=== PATIENT | female | born 1945 | race Caucasian/White ===

== ENCOUNTER 2023-02-26 12:11 | Emergency (ER) | payer OTHER ==
--- NOTE | 2023-02-26 13:20 | RAD REPORT ---
EXAM DESCRIPTION: CT - Stone Protocol - 02/26/2023 1:05 pm CLINICAL HISTORY: Flank pain. FLANK PAIN COMPARISON: Abdomen Pelvis W Contrast dated 05/01/2021 TECHNIQUE: Axial images were obtained without oral or IV contrast. Lack of contrast limits solid org an and vascular assessment. The [id number] spans the entirety of the system partially obscuring uppermost abdomen and lung bases. Coronal reformatted images were obtained and reviewed. All CT scans are performed using dose optimization technique as appropriate and may include automated exposure control or mA/KV adjustment according to patient size. FINDINGS: The lower lung blevins are clear. Imaged portions of the liver and spleen show no suspicious findings on non-contrast imaging. The panc reas and adrenal glands are normal. No pathologic lymphadenopathy in the abdomen or pelvis. No urinary tract stones or obstructive uropathy. No bowel obstruction, free air, free fluid or abscess. Nonvisualized appendix. No significant bony abnormality. IMPRESSION: No urinary tract stones or obstructive uropathy.
--- NOTE | 2023-02-26 13:22 | RAD REPORT ---
EXAM DESCRIPTION: RAD - Hip Right 2 View - 02/26/2023 1:14 pm CLINICAL HISTORY: PAIN COMPARISON: <Comparisons> FINDINGS: Moderate right hip osteoarthritis is present. No fracture, dislocation or AVN.
[2023-02-26] MEDS ORDERED: dexAMETHasone 10 MG/ML VIAL ONE (14:49)
[2023-02-26] MEDS ORDERED: KETOROLAC 30 MG/ML INJ ONE (14:49)
[2023-02-26 15:04] LABS: Specific Gravity 1.008 (1.005-1.030); Urine Bilirubin NEGATIVE (Negative); Urine Blood Negative (Negative); Urine Clarity Clear (Clear); Urine Color Colorless (Yellow); Urine Glucose NEGATIVE (Negative); Urine Protein NEGATIVE (Negative); Urine Urobilinogen Normal (Normal); Urine pH 6.5 (5.0-7.0)
[2023-02-26 15:10] LABS: Absolute Lymphocytes (CBC) 1.2 K/uL (0.7-4.9); Hematocrit 44.2 % (36.0-45.0); MCV 85.3 fL (80-100); RBC Red Blood Cell Count 5.19 M/uL (3.86-4.86)
[2023-02-26 15:19] LABS: Potassium 3.8 mEq/L (3.5-5.1)
--- NOTE | 2023-02-26 15:25 | EDPHYS ---
Physician Documentation [facility] Name: Sommer Henry Age: 77 yrs Sex: Female : 1945 Arrival Date: 02/26/2023 Time: 12:11 Bed 12 Private MD: ED Physician Samson Patel HPI: 02/26 13:02 This 77 yrs old Female presents to ER via Ambulatory with complaints of Hip Pain. rn 13:02 The patient or guardian reports pain. sustained from unknown reason, There is no rn obvious deformity, The patient is able to self ambulate. The patient is able to bear their full body weight. There is no radiation of the patient's discomfort. The complaints affect the back and buttocks. Onset: The symptoms/episode began/occurred 1 week(s) ago. Modifying factors: The symptoms are alleviated by remaining still, the symptoms are aggravated by any movement. Severity of symptoms: At their worst the symptoms were moderate, in the emergency department the symptoms are unchanged. The patient has not experienced similar symptoms in the past. The patient has not recently seen a physician. Denies injury or fall, no radiation, no abd pain, no fever/vomiting/chest pain/diarrhea/sob. No cough. Lanza snot feel ill. Improves when laying down, worse with movement and palpation.. Historical: - Allergies: 12:17 No Known Allergies; hb - Home Meds: 12:17 chlorthalidone 25 mg Oral tab 1 tab once daily [Active]; leflunomide 20 mg oral tablet hb daily [Active]; losartan 50 mg oral tablet daily [Active]; hydroxychloroquine 200 mg oral tablet 2 times per day [Active]; glimepiride 2 mg Oral tablet twice a day [Active]; prednisone 5 mg Oral tablet daily [Active]; Enbrel subcutaneous every week [Active]; Vitamin C 500 mg Oral tablet, extended release daily [Active]; indomethacin 50 mg Oral capsule 2 times per day [Active]; - PMHx: 12:17 COPD; hb - Immunization history:: Adult Immunizations up to date. - Social history:: Smoking status: Patient denies any tobacco usage or history of. - Family history:: not pertinent. - Hospitalizations: : No recent hospitalization is reported. ROS: 13:02 Constitutional: Negative for fever, chills, and weight loss, Cardiovascular: Negative rn for chest pain, palpitations, and edema, Respiratory: Negative for shortness of breath, cough, wheezing, and pleuritic chest pain, Abdomen/GI: Negative for abdominal pain, nausea, vomiting, diarrhea, and constipation, Back: + right lower back pain : Negative for injury, bleeding, discharge, and swelling, MS/Extremity: Negative for injury and deformity, Neuro: Negative for headache, weakness, numbness, tingling, and seizure. Exam: 13:02 Constitutional: This is a well developed, well nourished patient who is awake, alert, occupational health rn to room and declines wheelchair Cardiovascular: Regular rate and rhythm. No pulse deficits. Respiratory: No increased work of breathing, no retractions or nasal flaring. Abdomen/GI: Soft, non-tender Back: No spinal tenderness. No costovertebral tenderness. Skin: Warm, dry MS/ Extremity: Pulses equal, no cyanosis. Neurovascular intact. Full, normal range of motion. Equal circumference. Neuro: Awake and alert, GCS 15, oriented to person, place, time, and situation. Cranial nerves II-XII grossly intact. Motor strength 5/5 in all extremities. Sensory grossly intact. Cerebellar exam normal. Antalgic gait. Vital Signs: 12:16 BP 180 / 71; Pulse 92; Resp 18; Temp 98.1; Pulse Ox 90% on R/A; Weight 87.09 kg; Height hb 5 ft. 5 in. ; Pain 8/10; 15:47 BP 134 / 77; Pulse 85; Resp 15; Pulse Ox 95% ; jl7 12:16 Body Mass Index 31.95 (87.09 kg, 165.1 cm) hb 12:16 Pain Scale: Adult hb MDM: 12:14 Patient medically screened. rn 15:23 Differential diagnosis: bursitis, arthritis, strain, radiculopathy, muscle spasm, back rn pain. Data reviewed: vital signs, nurses notes, lab test result(s), radiologic studies, CT scan, and as a result, I will discharge patient. Counseling: I had a detailed discussion with the patient and/or guardian regarding: the historical points, exam findings, and any diagnostic results supporting the discharge/admit diagnosis, lab results, radiology results, the need for outpatient follow up, to return to the emergency department if symptoms worsen or persist or if there are any questions or concerns that arise at home. Response to treatment: the patient's symptoms have mildly improved after treatment, and as a result, I will discharge patient. Special discussion: I discussed with the patient/guardian in detail that at this point there is no indication for admission to the hospital. It is understood, however, that if the symptoms persist or worsen the patient needs to return immediately for re-evaluation. Based on the history and exam findings, there is no indication for further emergent testing or inpatient evaluation. I discussed with the patient/guardian the need to see the back specialist for further evaluation of the symptoms. I discussed with the patient/guardian the need to see the primary care provider for further evaluation of the symptoms. ED course: Pt declines further pain medication, will dc home as no acute findings in ct/urine/blood. Will dc home with return precautions. . 02/26 12:47 Order name: Urinalysis w/ reflexes; Complete Time: 15:18 rn 02/26 12:47 Order name: CBC with Diff; Complete Time: 15:18 02/26 12:47 Order name: BMP; Complete Time: 15:23 rn 02/26 12:23 Order name: XRAY Hip RIGHT 2 view; Complete Time: 13:57 rn 02/26 12:47 Order name: CT Stone Protocol; Complete Time: 13:57 02/26 12:47 Order name: IV Start; Complete Time: 14:22 rn 02/26 14:36 Order name: Labs - recollect needed: recollect cbc and chem/ hemolyzed; Complete Time: eb 14:57 Administered Medications: 14:57 Drug: Ketorolac IVP 15 mg Route: IVP; Site: right forearm; jl7 15:49 Follow up: Response: No adverse reaction; Pain is decreased jl7 14:57 Drug: Decadron - Dexamethasone IVP 10 mg Route: IVP; Site: right forearm; jl7 15:48 Follow up: Response: No adverse reaction jl7 Disposition Summary: 02/26/23 15:24 Discharge Ordered Location: Home rn Problem: new rn Symptoms: have improved rn Condition: Stable rn Diagnosis - Low back pain rn Followup: rn - With: Private Physician - When: As needed - Reason: Recheck today's complaints, Re-evaluation by your physician Discharge Instructions: - Discharge Summary Sheet rn - Acute Back Pain, Adult rn - Musculoskeletal Pain rn Forms: - Medication Reconciliation Form rn - Thank You Letter rn - Antibiotic learning strategist - Prescription Opioid Use rn Prescriptions: - Cyclobenzaprine 10 mg Oral Tablet - take 1 tablet by ORAL route every 8-12 hours As needed; 15 tablet; Refills: 0, rn Product Selection Permitted - Tramadol 50 mg Oral Tablet - take 1 tablet by ORAL route every 8 hours as needed; 12 tablet; Refills: 0, rn Product Selection Permitted - Medrol (Hang) 4 mg Oral Tablets, Dose Pack - take 1 tablet by ORAL route as directed - follow package instructions; 1 rn packet; Refills: 0, Product Selection Permitted Signatures: Dispatcher [employer] EDSamson Calero MD MD rn Baxter, Heather, RN RN hb Leal, Jahala RN RN jl7 Moira Hubbard
--- NOTE | 2023-02-26 15:25 | ER ---
Nurse's Notes [facility] Name: Sommer Henry Age: 77 yrs Sex: Female : 1945 Arrival Date: 02/26/2023 Time: 12:11 Bed 12 Private MD: Diagnosis: Low back pain Presentation: 02/26 12:16 Chief complaint: Right hip pain x 1 week. Pain does not radiate. Denies injury. hb Coronavirus screen: At this time, the client does not indicate any symptoms associated with coronavirus-19. Ebola Screen: No symptoms or risks identified at this time. Initial Sepsis Screen: Does the patient meet any 2 criteria? HR > 90 bpm. No. Patient's initial sepsis screen is negative. Does the patient have a suspected source of infection? No. Patient's initial sepsis screen is negative. Risk Assessment: Do you want to hurt yourself or someone else? Patient reports no desire to harm self or others. Onset of symptoms was February 19, 2023. 12:16 Method Of Arrival: Ambulatory hb 12:16 Acuity: FLETCHER 3 hb Historical: - Allergies: 12:17 No Known Allergies; hb - Home Meds: 12:17 chlorthalidone 25 mg Oral tab 1 tab once daily [Active]; leflunomide 20 mg oral tablet hb daily [Active]; losartan 50 mg oral tablet daily [Active]; hydroxychloroquine 200 mg oral tablet 2 times per day [Active]; glimepiride 2 mg Oral tablet twice a day [Active]; prednisone 5 mg Oral tablet daily [Active]; Enbrel subcutaneous every week [Active]; Vitamin C 500 mg Oral tablet, extended release daily [Active]; indomethacin 50 mg Oral capsule 2 times per day [Active]; - PMHx: 12:17 COPD; hb - Immunization history:: Adult Immunizations up to date. - Social history:: Smoking status: Patient denies any tobacco usage or history of. - Family history:: not pertinent. - Hospitalizations: : No recent hospitalization is reported. Screenin:00 [facility] ED Fall Risk Assessment (Adult) History of falling in the last 3 months, jl7 including since admission No falls in past 3 months (0 pts) Confusion or Disorientation No (0 pts) Intoxicated or Sedated No (0 pts) Impaired Gait No (0 pts) Mobility Assist Device Used No (0 pt) Altered Elimination No (0 pt) Score/Fall Risk Level 0 - 2 = Low Risk Oriented to surroundings, Maintained a safe environment. 15:00 Abuse screen: Denies threats or abuse. Denies injuries from another. Nutritional jl7 screening: No deficits noted. Tuberculosis screening: No symptoms or risk factors identified. Assessment: 14:30 Pain: Complains of pain in back Pain currently is 8 out of 10 on a pain scale. jl7 15:48 Reassessment: pain decreased "A little". jl7 Vital Signs: 12:16 BP 180 / 71; Pulse 92; Resp 18; Temp 98.1; Pulse Ox 90% on R/A; Weight 87.09 kg; Height hb 5 ft. 5 in. ; Pain 8/10; 15:47 BP 134 / 77; Pulse 85; Resp 15; Pulse Ox 95% ; jl7 12:16 Body Mass Index 31.95 (87.09 kg, 165.1 cm) hb 12:16 Pain Scale: Adult hb ED Course: 12:11 Patient arrived in ED. rg4 12:14 Samson Patel MD is Attending Physician. rn 12:17 Triage completed. hb 12:20 Arm band placed on. hb 13:06 CT Stone Protocol In Process Unspecified. EDMS 13:14 XRAY Hip RIGHT 2 view In Process Unspecified. EDMS 14:22 Patient has correct armband on for positive identification. Bed in low position. Call mm9 light in reach. Side rails up X2. Adult w/ patient. Warm blanket given. Pillow given. Pulse ox on. NIBP on. 14:22 BMP Sent. mm9 14:22 CBC with Diff Sent. mm9 14:23 Initial lab(s) drawn, by tn, sent to lab. Inserted saline lock: 22 gauge in right mm9 forearm, using aseptic technique. 14:39 Riaz Mascorro, MARIANO is Primary Nurse. jl7 15:00 No provider procedures requiring assistance completed. IV discontinued, intact, jl7 bleeding controlled, No redness/swelling at site. Pressure dressing applied. Administered Medications: 14:57 Drug: Ketorolac IVP 15 mg Route: IVP; Site: right forearm; jl7 15:49 Follow up: Response: No adverse reaction; Pain is decreased jl7 14:57 Drug: Decadron - Dexamethasone IVP 10 mg Route: IVP; Site: right forearm; [facility] 15:48 Follow up: Response: No adverse reaction jl7 Medication: 15:48 VIS not applicable for this client. jl7 Outcome: 15:24 Discharge ordered by . rn 15:52 Discharged to home via wheelchair. jl7 15:52 Condition: stable 15:52 Discharge instructions given to patient, Instructed on discharge instructions, follow up and referral plans. medication usage, Demonstrated understanding of instructions, follow-up care, medications, Prescriptions given X 3. 15:52 Patient left the ED. jl7 Signatures: Dispatcher [employer] EDMS Samson Patel MD MD rn Baxter, Heather, RN RN hb Garcia, Rubi rg4 Riaz Mascorro RN RN jl7 Gisselle Valdez mm9
[2023-02-26 16:36] VITALS: TEMP 98.1
[2023-02-26 16:39] VITALS: BP 134/77; O2SAT 95
== END 2023-02-26 15:52 | disposition home or self-care (01) ==
LOC: ER 12:11
DX: M54.50 Low back pain, unspecified (principal); M25.551 Pain in right hip; J44.9 Chronic obstructive pulmonary disease, unspecified
CPT/HCPCS: 85025; 80048; 36415; 81003; 76377; 74176; 73502; J1100

== ENCOUNTER 2023-11-22 00:27 | Observation (INO) | payer OTHER ==
[2023-11-22] MEDS ORDERED: METHYLPREDNISOLONE 125 MG INJ ONE (01:33)
[2023-11-22 01:58] LABS: Absolute Lymphocytes (CBC) 1.1 K/uL (0.7-4.9); Hematocrit 45.5 % (36.0-45.0); Lymphocytes % 16.5 % (15.3-44.8); MCV 85.3 fL (80-100); MPV 8.9 fL (7.6-11.3); Platelets 170 thou/uL (152-406); RBC Red Blood Cell Count 5.33 M/uL (3.86-4.86)
[2023-11-22 02:39] LABS: Potassium 3.4 mEq/L (3.5-5.1)
[2023-11-22] MEDS ORDERED: D10W 250 ML IV ONE (02:49)
[2023-11-22] MEDS: GLUCAGON 1 MG/VIAL ONE (02:53)
[2023-11-22] MEDS: D5NS KCL 20MEQ 1,000 ML IV ONE (02:54)
--- NOTE | 2023-11-22 03:00 | ER ---
Nurse's Notes [facility] Name: Sommer Henry Age: 78 yrs Sex: Female : 1945 Arrival Date: 11/22/2023 Time: 00:27 Bed 8 Private MD: Diagnosis: Hypoglycemia, unspecified-Persistent;Dehydration;Altered mental status, unspecified Presentation: 11/22 00:52 Chief complaint: Patient states: glucose of 58 at bedtime. 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 spouse stated he gave orange juice and candy. pt reports being confused and shaky at time of low reading. symptoms resolved PEAT SHREDDER TENDER. blood glucose 76 at time of triage. Coronavirus screen: Client denies travel out of the [place] in the last 14 days. At this time, the client does not indicate any symptoms associated with coronavirus-19. Ebola Screen: No symptoms or risks identified at this time. Initial Sepsis Screen: Does the patient meet any 2 criteria? No. Patient's initial sepsis screen is negative. Does the patient have a suspected source of infection? No. Patient's initial sepsis screen is negative. Risk Assessment: Do you want to hurt yourself or someone else? Patient reports no desire to harm self or others. Onset of symptoms was November 22, 2023. 00:52 Method Of Arrival: Wheelchair lg3 00:52 Acuity: FLETCHER 3 lg3 Triage Assessment: 00:56 General: Appears in no apparent distress. comfortable, Behavior is calm, cooperative. lg3 Pain: Denies pain. EENT: No deficits noted. No signs and/or symptoms were reported regarding the EENT system. Neuro: No deficits noted. Duque Agitation-Sedation Scale (RASS): 0 - Alert and Calm Level of Consciousness is awake, alert, obeys commands, Oriented to person, place, time, situation. Cardiovascular: No deficits noted. Denies chest pain, shortness of breath, Heart tones S1 S2 present Capillary refill < 3 seconds Clubbing of nail beds is absent JVD is absent Patient's skin is warm and dry. Respiratory: No deficits noted. Airway is patent Respiratory effort is even, unlabored, Respiratory pattern is regular, symmetrical, Breath sounds are clear bilaterally. GI: No deficits noted. No signs and/or symptoms were reported involving the gastrointestinal system. Abdomen is round non-distended, Bowel sounds present X 4 quads. Abd is soft and non tender X 4 quads. : No deficits noted. No signs and/or symptoms were reported regarding the genitourinary system. Derm: No deficits noted. No signs and/or symptoms reported regarding the dermatologic system. Skin is intact, is thin, Skin is dry, Skin is normal, Skin temperature is warm. Musculoskeletal: No deficits noted. No signs and/or symptoms reported regarding the musculoskeletal system. Circulation, motion, and sensation intact. Range of motion: intact in all extremities. Historical: - Allergies: 00:56 No Known Allergies; lg3 - PMHx: 00:56 COPD; Diabetes mellitus; Hypertensive disorder; lg3 - PSHx: 00:56 Appendectomy; Cholecystectomy; Total abdominal hysterectomy; lg3 - Immunization history:: Adult Immunizations up to date, Client reports receiving the 2nd dose of the Covid vaccine, Pneumococcal vaccine is not up to date, Flu vaccine is not up to date. - Social history:: Smoking status: Patient denies any tobacco usage or history of. Patient/guardian denies using alcohol, street drugs. - Family history:: not pertinent. - Hospitalizations: : Patient was recently seen at. Screenin:36 [facility] ED Fall Risk Assessment (Adult) History of falling in the last 3 months, ha1 including since admission Yes- single mechanical fall (1 pt) Confusion or Disorientation No (0 pts) Intoxicated or Sedated No (0 pts) Impaired Gait No (0 pts) Mobility Assist Device Used Yes (1 pt) Altered Elimination No (0 pt) Score/Fall Risk Level 3 or more points = High Risk Oriented to surroundings, Maintained a safe environment, Hourly rounding (assess needs \T\ fall precautionary measures) done. Abuse screen: Denies threats or abuse. Denies injuries from another. Nutritional screening: No deficits noted. Tuberculosis screening: No symptoms or risk factors identified. Assessment: 00:36 General: Appears comfortable, Behavior is calm, cooperative. Pain: Denies pain. Neuro: ha1 Level of Consciousness is awake, alert, obeys commands, Oriented to person, place, time, situation. Cardiovascular: Capillary refill < 3 seconds Patient's skin is warm and dry. Respiratory: Airway is patent Respiratory effort is even, unlabored, Respiratory pattern is regular, symmetrical. GI: Abdomen is round non-distended, Reports LOW GLUCOSE LEVELS. Derm: Skin is pink, warm \T\ dry. Musculoskeletal: Circulation, motion, and sensation intact. 01:25 Reassessment: provide apple juice crackers. ha1 01:30 Reassessment: Patient and/or family updated on plan of care and expected duration. Pain ha1 level reassessed. Patient is alert, oriented x 3, equal unlabored respirations, skin warm/dry/pink. 02:38 Reassessment: provided apple juice, sandwich, fruit cup, peanut butter sandwich. Dr. sierra Patel was notified of low glucose level. 02:39 Reassessment: DR. PATEL IN PATIENT'S ROOM. Reassessment: Patient and/or family updated ha1 on plan of care and expected duration. Pain level reassessed. Patient is alert, oriented x 3, equal unlabored respirations, skin warm/dry/pink. 03:28 Reassessment: Patient and/or family updated on plan of care and expected duration. Pain ha1 level reassessed. Patient is alert, oriented x 3, equal unlabored respirations, skin warm/dry/pink. NOTIFIED DR. PATEL OF NEW GLUCOSE LEVEL. glucose at 176. Vital Signs: 00:46 BP 143 / 75; Pulse 91; Resp 17 S; Pulse Ox 96% on 2 lpm NC; ha1 00:52 BP 143 / 75; Pulse 90; Resp 19 S; Temp 98.1(O); Pulse Ox 98% on 3 lpm NC; Weight 85.28 lg3 kg (R); Height 5 ft. 5 in. (R); Pain 0/10; 01:54 BP 146 / 76; Pulse 84; Resp 17 S; Pulse Ox 97% on 2 lpm NC; ha1 02:30 BP 168 / 83; Pulse 79; Resp 17 S; Pulse Ox 97% on 2 lpm NC; ha1 03:30 BP 162 / 80; Pulse 88; Resp 17 S; Pulse Ox 98% on 2 lpm NC; ha1 00:52 Body Mass Index 31.28 (85.28 kg, 165.1 cm) lg3 00:52 Pain Scale: Adult lg3 ED Course: 00:29 Patient arrived in ED. ag3 00:33 Samson Patel MD is Attending Physician. rn 00:36 Patient has correct armband on for positive identification. Placed in gown. Bed in low ha1 position. Call light in reach. Side rails up X 1. Adult w/ patient. 00:56 Triage completed. lg3 00:56 Arm band placed on right wrist. lg3 01:00 Inserted saline lock: 22 gauge in right antecubital area, using aseptic technique. ha1 Blood collected. 01:27 XRAY Chest (1 view) In Process Unspecified. EDMS 02:58 Donal Lee MD is Hospitalizing Provider. rn 04:00 Provided Education on: need for admit . ha1 04:48 No provider procedures requiring assistance completed. Patient admitted, IV remains in ha1 place. Administered Medications: 01:30 Drug: Solu-CORTEF IVP 100 mg IVP once Route: IVP; Site: right antecubital; ha1 02:57 Drug: Glucagon IVP 1 mg IVP once Route: IVP; Site: right antecubital; ha1 03:28 Follow up: Response: No adverse reaction; Marked relief of symptoms; Blood sugar is ha1 elevated 02:57 Drug: D10 in Water IVP 250 ml IVP once Route: IVP; Site: right antecubital; vc1 03:28 Follow up: Response: No adverse reaction; Marked relief of symptoms; Blood sugar is ha1 elevated 03:02 Not Given (Duplicate Order): [id number] ml IV at 125 ml/hr continuous rn 03:07 Drug: D5-NS IV 20 mEq/L 1000 ml IV at 125 ml/hr continuous Route: IV; Rate: 125 ml/hr; vc1 Site: right antecubital; Medication: 01:54 VIS not applicable for this client. ha1 Outcome: 02:59 Decision to Hospitalize by Provider. rn 04:00 Admitted to ER Hold. [facility]. ha1 04:00 Condition: stable 04:00 Discharge instructions given to patient, family, Instructed on the need for admit, 14:48 Patient left the ED. ph Signatures: Dispatcher [employer] EDMS Samson Patel MD MD rn Hall, Patricia, RN RN ph Gomez, Alice ag3 Able, Lacie, RN RN lg3 Aurora Mixon RN RN vc1 Kirstie May RN RN ha1 Corrections: (The following items were deleted from the chart) 03:01 02:58 Reassessment: Patient and/or family updated on plan of care and expected ha1 duration. Pain level reassessed. Patient is alert, oriented x 3, equal unlabored respirations, skin warm/dry/pink. ha1 05:07 03:28 Reassessment: Patient and/or family updated on plan of care and expected ha1 duration. Pain level reassessed. Patient is alert, oriented x 3, equal unlabored respirations, skin warm/dry/pink. NOTIFIED DR. PATEL OF NEW GLUCOSE LEVEL ha1 05:09 02:45 Reassessment: provided apple juice, sandwich, fruit cup, peanut butter sandwich ha1 ha1 05:11 02:48 Reassessment: Patient and/or family updated on plan of care and expected ha1 duration. Pain level reassessed. Patient is alert, oriented x 3, equal unlabored respirations, skin warm/dry/pink. ha1 05:11 02:48 Reassessment: DR. PATEL IN PATIENT'S ROOM. ha1 ha1
--- NOTE | 2023-11-22 03:00 | EDPHYS ---
Physician Documentation [facility] Name: Sommer Henry Age: 78 yrs Sex: Female : 1945 Arrival Date: 11/22/2023 Time: 00:27 Bed 8 Private MD: ED Physician Samson Patel HPI: 11/22 00:46 This 78 yrs old Female presents to ER via Unassigned with complaints of Low Blood Sugar.rn 00:46 The patient or guardian reports hypoglycemia, that was potentially precipitated by no rn particular event. Onset: The symptoms/episode began/occurred just prior to arrival. Current symptoms: In the emergency department the patient's symptoms have improved. The patient has not experienced similar symptoms in the past. Patient reports low blood sugar tonight. [place] shaky and was confused, glucose was in the 20s. Takes glyburide in the morning. Patient reports just discharged from hospital a few days ago after she was admitted for flu and pneumonia. Reports not normal p.o. intake yet but did eat lunch and dinner. No syncope. No seizure. States this has not happened in the past. With recent admission and discharged patient placed on home oxygen which is new for her. No other medication changes.. Historical: - Allergies: 00:56 No Known Allergies; lg3 - PMHx: 00:56 COPD; Diabetes mellitus; Hypertensive disorder; lg3 - PSHx: 00:56 Appendectomy; Cholecystectomy; Total abdominal hysterectomy; lg3 - Immunization history:: Adult Immunizations up to date, Client reports receiving the 2nd dose of the Covid vaccine, Pneumococcal vaccine is not up to date, Flu vaccine is not up to date. - Social history:: Smoking status: Patient denies any tobacco usage or history of. Patient/guardian denies using alcohol, street drugs. - Family history:: not pertinent. - Hospitalizations: : Patient was recently seen at. ROS: 00:46 Constitutional: Negative for fever, chills, and weight loss, Neck: Negative for injury, rn pain, and swelling, Cardiovascular: Negative for chest pain, palpitations, and edema, Respiratory: Negative for wheezing, and pleuritic chest pain, Abdomen/GI: Negative for abdominal pain, nausea, vomiting, diarrhea, and constipation, Back: Negative for injury and pain, MS/Extremity: Negative for injury and deformity, Skin: Negative for injury, rash, and discoloration, Neuro: Negative for headache, weakness, numbness, tingling, and seizure, Exam: 00:46 Constitutional: This is a well developed, well nourished patient who is awake, alert, rn and in no acute distress. Head/Face: Normocephalic, atraumatic. Cardiovascular: Regular rate and rhythm. No pulse deficits. Respiratory: No increased work of breathing, no retractions or nasal flaring. Abdomen/GI: Soft, non-tender MS/ Extremity: Pulses equal, no cyanosis. Neurovascular intact. Full, normal range of motion. Equal circumference. Neuro: Awake and alert, GCS 15, oriented to person, place, time, and situation. Cranial nerves II-XII grossly intact. Motor strength 5/5 in all extremities. Sensory grossly intact. Cerebellar exam normal. Vital Signs: 00:46 BP 143 / 75; Pulse 91; Resp 17 S; Pulse Ox 96% on 2 lpm NC; ha1 00:52 BP 143 / 75; Pulse 90; Resp 19 S; Temp 98.1(O); Pulse Ox 98% on 3 lpm NC; Weight 85.28 lg3 kg (R); Height 5 ft. 5 in. (R); Pain 0/10; 01:54 BP 146 / 76; Pulse 84; Resp 17 S; Pulse Ox 97% on 2 lpm NC; ha1 02:30 BP 168 / 83; Pulse 79; Resp 17 S; Pulse Ox 97% on 2 lpm NC; ha1 03:30 BP 162 / 80; Pulse 88; Resp 17 S; Pulse Ox 98% on 2 lpm NC; ha1 00:52 Body Mass Index 31.28 (85.28 kg, 165.1 cm) lg3 00:52 Pain Scale: Adult lg3 MDM: 00:33 Patient medically screened. rn 02:56 Differential diagnosis: hypoglycemic episode, kidney failure. Data reviewed: vital rn signs, nurses notes, lab test result(s), radiologic studies, and as a result, I will admit patient. Counseling: I had a detailed discussion with the patient and/or guardian regarding the historical points, exam findings, and any diagnostic results supporting the discharge/admit diagnosis, lab results, radiology results, the need for further work-up and treatment in the hospital. Response to treatment: the patient's symptoms have worsened after treatment. ED course: Patient with persistent hypoglycemia despite eating twice and given IV steroids. Glucose dropped again to 30, at the start on D5 infusion as well as given glucagon. This is never happened to patient before and we are both concerned about sending her home in the middle of the evening without proper monitoring. Will admit to hospitalist service for further monitoring and glucose infusion until stabilizes. 11/22 00:45 Order name: CBC with Diff; Complete Time: 02:37 rn 11/22 00:45 Order name: Basic Metabolic Panel; Complete Time: 02:44 rn 11/22 00:53 Order name: Glucose, Ancillary Testing; Complete Time: 01:07 EDMS 11/22 02:58 Order name: Glucose, Ancillary Testing; Complete Time: 03:00 EDCT 11/22 03:37 Order name: Glucose, Ancillary Testing; Complete Time: 04:03 EDMS 11/22 04:47 Order name: Glucose, Ancillary Testing; Complete Time: 04:52 EDMS 11/22 05:41 Order name: Glucose, Ancillary Testing; Complete Time: 07:03 EDCT 11/22 05:53 Order name: Urinalysis w/ reflexes; Complete Time: 07:03 EDMS 11/22 06:52 Order name: Glucose, Ancillary Testing; Complete Time: 07:03 EDMS 11/22 07:54 Order name: Glucose, Ancillary Testing EDCT 11/22 09:52 Order name: Glucose, Ancillary Testing EDCT 11/22 00:45 Order name: XRAY Chest (1 view) rn 11/22 00:45 Order name: EKG; Complete Time: 00:45 rn 11/22 00:45 Order name: IV Start; Complete Time: 02:20 rn 11/22 00:45 Order name: EKG - Nurse/Tech; Complete Time: 01:51 rn 11/22 00:45 Order name: Cardiac monitoring; Complete Time: 01:01 rn 11/22 00:45 Order name: O2 Sat Monitoring; Complete Time: 01:00 rn 11/22 00:45 Order name: Glucose Level; Complete Time: 01:00 rn 11/22 00:45 Order name: PO challenge: give complex carbs; Complete Time: 02:18 rn 11/22 01:59 Order name: Labs - recollect needed; Complete Time: 02:18 kmf Administered Medications: 01:30 Drug: Solu-CORTEF IVP 100 mg IVP once Route: IVP; Site: right antecubital; ha1 02:57 Drug: Glucagon IVP 1 mg IVP once Route: IVP; Site: right antecubital; ha1 03:28 Follow up: Response: No adverse reaction; Marked relief of symptoms; Blood sugar is ha1 elevated 02:57 Drug: D10 in Water IVP 250 ml IVP once Route: IVP; Site: right antecubital; vc1 03:28 Follow up: Response: No adverse reaction; Marked relief of symptoms; Blood sugar is ha1 elevated 03:02 Not Given (Duplicate Order): [id number] ml IV at 125 ml/hr continuous rn 03:07 Drug: D5-NS IV 20 mEq/L 1000 ml IV at 125 ml/hr continuous Route: IV; Rate: 125 ml/hr; vc1 Site: right antecubital; Disposition Summary: 11/22/23 02:59 Hospitalization Ordered Notes: Hospitalization Status: Observation rn Provider: Donal Lee rn Condition: Stable rn Problem: new rn Symptoms: have worsened rn Bed/Room Type: Standard rn Location: Telemetry/MedSurg (Inpatient)(11/22/23 12:50) em1 Room Assignment: [facility](11/22/23 12:50) em1 Diagnosis - Dehydration rn - Altered mental status, unspecified rn - Hypoglycemia, unspecified - Persistent(11/22/23 02:59) rn Forms: - Medication Reconciliation Form rn - SBAR form rn - Leadership Thank You Letter rn Signatures: Dispatcher [employer] EDMS Samson Patel MD MD rn Martinez, Eric em1 Kathya Hedrick RN Katia Greenberg RN RN [email or web address] Aurora Mixon RN RN vc1 Kirstie May, RN RN ha1 Adrienne Barakat [facility] Corrections: (The following items were deleted from the chart) 02:59 02:59 Hypoglycemia, unspecified rn rn 03:32 02:59 Telemetry/MedSurg (observation) rn cg 03:32 02:59 rn cg 12:50 03:32 [facility] ER HOLD cg em1 12:50 03:32 ERHOLD- cg em1
[2023-11-22] MEDS ORDERED: ONDANSETRON 4 MG/2 ML VIAL IV PRN (03:17)
[2023-11-22] MEDS ORDERED: ACETAMINOPHEN 325 MG TABLET PO PRN (03:17)
[2023-11-22] MEDS: DEXTROSE 10%-WATER 500 ML IV SCH (03:30)
[2023-11-22 04:35] VITALS: BMI 30.2
[2023-11-22 04:36] VITALS: O2SAT 97
--- NOTE | 2023-11-22 05:51 | P.HP ---
Certification for Inpatient Patient admitted to: Observation With expected LOS: <2 Midnights Practitioner: I am a practitioner with admitting privileges, knowledge of patient current condition, hospital course, and medical plan of care. Services: Services provided to patient in accordance with Admission requirements found in Title 42 Section 412.3 of the Code of Federal Regulations Patient History Date of Service: 11/22/23 Reason for admission: Recurrent type History of Present Illness: Seven 8-year-old female patient with medical history significant for diabetes type 2, hypertension, hyperlipidemia was on oral glimepiride therapy for diabetes control. She reported lethargy and low blood sugar so she came to the ED for evaluation. In the ED she had significantly severe hypoglycemia with a glucose of 20s and 30s on requiring basis so she was started on IV D5 W infusion and she was admitted for inpatient care. On further review patient was deemed to have complication of oral hypoglycemic drug of glimepiride. She denies overt episode of loss of consciousness, fever, chills, rigor, nausea, vomiting. Allergies No Known Allergies Allergy (Verified 03/02/16 13:47) Home Medications: Chlorthalidone 25 mg PO DAILY 10/11/17 Gabapentin 300 mg PO BID 10/11/17 Glimepiride 1 mg PO BID 10/11/17 Albuterol Inhaler [Ventolin Inhaler*] 2 puff IH Q6H PRN #1 hfa.aer.ad 10/14/17 Benzonatate [Tessalon Perle*] 200 mg PO TIDP PRN #30 cap 10/14/17 Ascorbic Acid [Vitamin C] 500 mg PO DAILY 11/22/23 Cholecalciferol (Vitamin D3) [Vitamin D 1000 Iu Tab] 1,000 unit PO DAILY 11/22/23 predniSONE [Deltasone*] 10 mg PO BID PRN 11/22/23 - Past Medical/Surgical History Has patient received pneumonia vaccine in the past: No Diabetic: Yes -: COPD -: Jayde -: Appy -: Tubal ligation - Family History Father -: Heart disease, Hypertension Mother -: Cancer, Kidney disease Sister -: Stroke Brother -: Stroke - Social History Smoking Status: Never smoker Alcohol use: No CD- Drugs: No Caffeine use: Yes Review of Systems General: Weakness, Malaise Eyes: Unremarkable Respiratory: Unremarkable Cardiovascular: Unremarkable Gastrointestinal: Unremarkable Genitourinary: Unremarkable Musculoskeletal: Unremarkable Integumentary: Unremarkable Neurological: Unremarkable Lymphatics: Unremarkable Physical Examination - Vital Signs Temperature: 97.1 F Blood Pressure: 162/80 Pulse: 82 Respirations: 15 Pulse Ox (%): 97 - Physical Exam General: Alert, Oriented x3 HEENT: Atraumatic Neck: Supple Respiratory: Normal air movement Cardiovascular: Regular rate/rhythm, Normal S1 S2 Gastrointestinal: Soft and benign Musculoskeletal: No swelling Neurological: Normal speech, Normal strength at 5/5 x4 extr - Studies Laboratory Data (last 24 hrs) 11/22/23 11/22/23 02:05 01:20 WBC 6.80 Hgb 15.1 H Hct 45.5 H Plt Count 170 Sodium 136 Potassium 3.4 L BUN 35 H Creatinine 0.71 Glucose 39 L* Assessment and Plan - Plan Recurrent hypoglycemia: Patient has significant complication of glimeperide. Will hold drug and follow glucose level as per protocol. Will have on every hour glucose check Continue D10W infusion for management of severe recurrent hypoglycemia. Diabetes type 2: Continue patient on sliding scale insulin once she meets criteria and have on carb restricted diet. Hypertension: Monitor vital signs per unit protocol and continue antihypertensive medications. Hypokalemia: Potassium is low at 3.4, will replete and follow levels. Prophylaxis: Lovenox for DVT prophylaxis CODE STATUS: Full code Disposition: We will treat recurrent hypoglycemia and discharge her when she is deemed safe and side effect of glimepiride use is considered worn off. - Advance Directives Does patient have a Living Will: No Does patient have a Durable POA for Healthcare: No
[2023-11-22 05:52] LABS: Renal Epithelial <5 /HPF (None Seen); Specific Gravity 1.009 (1.005-1.030); Urine Bacteria <20 /HPF (<20); Urine Bilirubin NEGATIVE (Negative); Urine Blood Negative (Negative); Urine Clarity Clear (Clear); Urine Color Colorless (Yellow); Urine Glucose NEGATIVE (Negative); Urine Protein NEGATIVE (Negative); Urine RBC None Seen /HPF (None Seen); Urine Urobilinogen Normal (Normal)
[2023-11-22] MEDS ORDERED: DEXTROSE 10%-WATER 500 ML IV ONE (06:11)
[2023-11-22] MEDS: PNEUMOCOCCAL VACCINE 0.5 ML IMVAC ONE (08:00)
[2023-11-22] MEDS: INFLUENZA VACCINE (for 6+ mo) 0.5 ML DOSE IMVAC ONE (08:00)
[2023-11-22] MEDS: ENOXAPARIN 40 MG/0.4 ML SQ SCH (09:00)
--- NOTE | 2023-11-22 11:03 | RAD REPORT ---
EXAM DESCRIPTION: RAD - Chest Single View - 11/22/2023 1:25 am CLINICAL HISTORY: The patient is 78 years old and is Female; recent pneumonia TECHNIQUE: Frontal view of the chest. COMPARISON: No relevant prior studies available. FINDINGS: Lungs: Unremarkable. No consolidation. Pleural space: Unremarkable. No pneumothorax. Heart: Unremarkable. Mediastinum: Unremarkable. Normal mediastinal contour. Bones/joints: No acute findings. IMPRESSION: No acute findings in the chest. Electronically signed by: Jeromy Ray MD 11/22/2023 01:52 AM BROADCAST MAINTENANCE ENGINEER Due to temporary technical issues with the PACS/Fluency reporting system, reports are being signed by the in house radiologist without review as a courtesy to ensure prompt reporting. The interpreting r adiologist is fully responsible for the content of the report.
[2023-11-22] MEDS ORDERED: GLUCAGON 1 MG/VIAL IM PRN (11:13)
[2023-11-22] MEDS ORDERED: D50W 25 GM/50 ML SYRINGE IV PRN (11:13)
[2023-11-22] MEDS ORDERED: D10W 125 ML IV PRN (11:18)
[2023-11-22] MEDS: INSULIN REGULAR (HUMAN) 100 UNIT/ML SQ SCH (11:30)
[2023-11-22] MEDS ORDERED: INSULIN REGULAR (HUMAN) 100 UNIT/ML ONE (12:05)
[2023-11-22] MEDS ORDERED: ENOXAPARIN 40 MG/0.4 ML SQ ONE (12:05)
--- NOTE | 2023-11-22 13:33 | EKG ---
Test Date: 2023-11-22 Test Time: 01:47:04 Community Organization Worker: IVETTE MEASUREMENT RESULTS: Intervals: Rate: 90 WV: 176 QRSD: 92 QT: 374 QTc: 457 Raymond: P: 29 WV: 176 QRS: 103 T: 72 INTERPRETIVE STATEMENTS: Sinus rhythm with occasional premature ventricular complexes Anterior infarct, age undetermined Abnormal ECG Compared to ECG 01/22/2023 09:25:27 Ventricular premature complex(es) now present Myocardial infarct finding still present Electronically Signed On 11-22-23 13:32:08 [employer] by Frederick Taveras
[2023-11-22] MEDS ORDERED: ALBUTEROL INHALER 60 PUFF/8 GM IH PRN (15:07)
--- NOTE | 2023-11-22 15:13 | P.PN ---
Date of Service: 11/22/23 Patient seen and examined. She has no complaint. Blood pressure significantly elevated. Patient now has severe hyperglycemia on IV D10 infusion. Plan: Resume home antihypertensives. Discontinue IV D10 infusion Start insulin sliding scale ADA diet as tolerated. Monitor for 24 hours given high risk for rebound hypoglycemia.
[2023-11-22] MEDS: CHLORTHALIDONE 25 MG TAB PO SCH (16:01)
[2023-11-22] MEDS: GABAPENTIN 300 MG CAP PO SCH (21:09)
[2023-11-23 05:02] VITALS: TEMP 96.9
[2023-11-23 06:05] LABS: Absolute Lymphocytes (CBC) 2.1 K/uL (0.7-4.9); Hematocrit 40.8 % (36.0-45.0); Lymphocytes % 32.2 % (15.3-44.8); MCV 85.2 fL (80-100); MPV 8.7 fL (7.6-11.3); Platelets 166 thou/uL (152-406); RBC Red Blood Cell Count 4.79 M/uL (3.86-4.86)
[2023-11-23 06:22] LABS: Magnesium 2.1 mg/dL (1.6-2.4); Potassium 3.6 mEq/L (3.5-5.1)
[2023-11-23 08:30] VITALS: BP 163/72
[2023-11-23] MEDS: POTASSIUM CL SA 10 MEQ TAB PO ONE (08:46)
[2023-11-23] MEDS: ASCORBIC ACID 500 MG TABLET PO SCH (08:46)
[2023-11-23] MEDS: VITAMIN D 1000 UNIT TAB PO SCH (08:46)
--- NOTE | 2023-11-23 09:05 | P.DS ---
Admission Date: 11/22/23 Discharge Date: 11/23/23 Reason for Admission: Recurrent type Brief History of Present Illness: 78 yo F, PMH: diabetes type 2 on oral glimepiride therapy for diabetes control., hypertension, hyperlipidemia. Patient presented to the ED with lethargy and low blood sugar so she came to the ED for evaluation. In the ED she had significantly severe hypoglycemia with a glucose of 20s and 30s on requiring basis so she was started on IV D5 W infusion and she was admitted for inpatient care. On further review patient was deemed to have complication of oral hypoglycemic drug of glimepiride. She denies overt episode of loss of consciousness, fever, chills, rigor, nausea, vomiting Hospital Course: Problem List Recurrent Hypoglycemia, improved Hypokalemia, improved Hypertension Patient presented with lethargy, severe hypoglycemia. Patients glucose noted to be 39 on admission. Patient's home glimepiride was held and was started on IV fluids with D5W and had improvement of her symptoms. Suspect complication of oral hypoglycemic medication on glimepiride. A1c this hospitalization: 5.7. Advised patient to stop taking glimepiride. No indication to warrant oral diabetic medicine on discharge. Patient was feeling better, strength improved, labs stable and deemed stable for discharge home. Advised to ensure adequate hydration / PO intake. Glucose levels have been relatively stable last 24 hours. Check glucose levels daily. Advised to keep daily log of readings to take to follow up appointments in case meds need to be adjusted / restarted. Medications: stop Glimepiride Follow up: PCP 3-5 days Physical Exam: GEN: Alert, oriented, NAD HEENT: Normal conjunctiva, sclera anicteric, CV: Regular rate and rhythm, no edema Pulm: Nonlabored respirations on room air, clear bilaterally ABD: soft, nontender, nondistended Neuro: Normal speech, normal affect Vital Signs/Physical Exam: Temp Pulse Resp BP Pulse Ox 96.9 F 98 H 18 163/72 H 100 11/23/23 08:00 11/23/23 08:00 11/23/23 08:00 11/23/23 08:00 11/23/23 08:00 Laboratory Data at Discharge: WBC 6.40 thou/uL (4.3-10.9) 11/23/23 05:48 Hgb 13.5 g/dL (12.0-15.0) 11/23/23 05:48 Hct 40.8 % (36.0-45.0) 11/23/23 05:48 Plt Count 166 thou/uL (152-406) 11/23/23 05:48 Sodium 138 mEq/L (136-145) 11/23/23 05:48 Potassium 3.6 mEq/L (3.5-5.1) 11/23/23 05:48 BUN 32 mg/dL (7-18) H 11/23/23 05:48 Creatinine 0.69 mg/dL (0.55-1.02) 11/23/23 05:48 Glucose 75 mg/dL (74-106) 11/23/23 05:48 Magnesium 2.1 mg/dL (1.6-2.4) 11/23/23 05:48 Home Medications: Chlorthalidone 25 mg PO DAILY 10/11/17 Gabapentin 300 mg PO BID 10/11/17 Albuterol Inhaler [Ventolin Inhaler*] 2 puff IH Q6H PRN #1 hfa.aer.ad 10/14/17 Benzonatate [Tessalon Perle*] 200 mg PO TIDP PRN #30 cap 10/14/17 Ascorbic Acid [Vitamin C*] 500 mg PO DAILY 11/22/23 Cholecalciferol (Vitamin D3) [Vitamin D 1000 Iu Tab*] 1,000 unit PO DAILY 11/22/23 predniSONE [Deltasone*] 10 mg PO BID PRN 11/22/23 Physician Discharge Instructions: Patient presented with lethargy, severe hypoglycemia. Patients glucose noted to be 39 on admission. Patient's home glimepiride was held and was started on IV fluids with D5W and had improvement of her symptoms. Suspect complication of oral hypoglycemic medication on glimepiride. A1c this hospitalization: 5.7. Advised patient to stop taking glimepiride. No indication to warrant oral diabetic medicine on discharge. Patient was feeling better, strength improved, labs stable and deemed stable for discharge home. Advised to ensure adequate hydration / PO intake. Glucose levels have been relatively stable last 24 hours. Check glucose levels daily. Advised to keep daily log of readings to take to follow up appointments in case meds need to be adjusted / restarted. Medications: stop Glimepiride Follow up: PCP 3-5 days Followup: Osmar Plascencia FNP [Primary Care Provider] - Time spent managing pt's care (in minutes): 45
== END 2023-11-23 10:58 | disposition home or self-care (01) ==
LOC: ER 00:27 → ERHOLD 03:17 → UNDOADMOB 03:27 → ERHOLD 03:27 → 4TH 14:16
PROVIDERS: ADMIT Internal Medicine Nephrology; ATTEND Hospitalist
DX: E11.649 Type 2 diabetes mellitus with hypoglycemia without coma (principal); E87.6 Hypokalemia; I10 Essential (primary) hypertension; R41.82 Altered mental status, unspecified; E86.0 Dehydration
CPT/HCPCS: 93005; 85025 ×2; 81001; 80048 ×2; 36415 ×2; 83735; 82947 ×12; 83036; 71045; 96375; 96374; 99285; J1610; J1815 ×3; J1650 ×2; J2930; J3480; G0378 ×4

== ENCOUNTER 2025-01-17 14:26 | Emergency (ER) | payer OTHER ==
--- OUTSIDE RECORDS SUMMARY | 2025-01-17 14:31 | XMS REPORT | Continuity of Care Document ---
Author Name Unknown Address [address] [place] [address] Organization [facility] [place] Address [address] [place] [address] Care Team Providers Care Manager In Home Name Role Phone NELLA ZAMORA Primary Care Physician Unavailab Deloris QUINTANA, Nelson Vega Attending Clinician Unavail able Denilson Donnelly DO Attending Clinician [phone] Ras Salazar DO Attending Clinician [phone] RAS SALAZAR Attending Clinician Unavailable [email or web address]_Kazoeya_S Attending Clinician UnavailRas Montalvo DO Admitting Clinician [phone] RAS SALAZAR Admitting Clinician Unavailable [id number]_Joséa_S Admitting Clinician Unavailkaley mast Payers Payer Name Policy Type Policy Number Effective Date Expirati on Date Source Problems Condition Name Condition Details Condition Category Status Onset Date Resolution Date Last Treatment Date Treating Clinician Comments Source Dyspnea, unspecifie d type Dyspnea, unspecifie d type Disease Active 11-15 00:00: 00 [facility] Allergies, Adverse Reactions, Alerts Allergy Name Allergy Type Status Severity Reaction(s) Onset Date Inactive Date Treating Clinician Comments Source NO KNOWN ALLERGIE S Drug Class Active [facility] Social History Social Habit Start Date Stop Date Quantity Comments Source Sexual orientation U [facility] History of Social function 2023-11-17 00:00:00 2023-11-17 00:00:00 [facility] Tobacco use and exposure 2023-11-15 00:00:00 2023-11-15 00:00:00 Smokeless tobacco non-user [facility] Education - What is the highest level of school you have completed or the highest degree you have received? 2023-11-15 00:00:00 2023-11-15 00:00:00 GED or equivalent [facility] Sex Assigned At 1945 00:00:00 1945 00:00:00 [facility] Smoking Status Start Date Stop Date Source Never smoked tobacco [facility] Medications Ordered Medication Name Filled Medication Name Start Date Stop Date Current Medication? Ordering Clinician Indication Dosage Frequency Signature (SIG) Comments Components Source predniSONE 20 mg tablet 11-19 00:00: 00 11-22 05:59 :00 No [id number] 40mg Take 2 tablets by mouth in the morning for 2 days. [facility] losartan 50 mg tablet 11-18 15:24: 04 Yes 50mg Take 1 tablet by mouth in the morning. [facility] hydroxychlo roquine 100 mg Tab 11-18 15:24: 04 Yes 200mg Take 200 mg by mouth in the morning. Take two tabs PO daily [facility] chlorthalid one 25 mg tablet 11-18 15:24: 04 Yes 25mg Take 1 tablet by mouth in the morning. I TAB DAILY [facility] leflunomide 20 mg tablet 11-18 15:24: 04 Yes 20mg Take 1 tablet by mouth in the morning. 1 TAB PO DAILY [facility] glimepiride 2 mg tablet 11-18 15:24: 04 Yes 2mg Take 1 tablet by mouth in the morning and 1 tablet in the evening. 1 TAB PO TWICE DAILY [facility] ascorbic acid, vitamin C, (VITAMIN C) 500 mg 11-18 15:24: 04 Yes 500mg Take 1 tablet by mouth in the morning. 1 TAB DAILY [facility] traMADoL 50 mg tablet 11-18 15:24: 04 Yes 50mg Take 1 tablet by mouth every 6 (six) hours as needed for Pain (scale 4-6). [facility] cyclobenzap rine 10 mg tablet 11-18 15:24: 04 Yes 10mg Take 1 tablet by mouth in the morning and 1 tablet at noon and 1 tablet in the evening. [facility] glimepiride (AMARYL) tablet 2 mg 11-18 02:00: 00 Yes 2mg 2 mg, Oral, BID, First dose on Wed11/17/23 at 2000, Until Discontinu ed, Routine [facility] oseltamivir 75 mg capsule 11-18 00:00: 00 11-20 05:59 :00 No [id number] 75mg Take 1 capsule by mouth in the morning and 1 capsule in the evening. Do all this for 1 day. [facility] HYDROcodone -acetaminop hen (NORCO) 10-325 mg tablet 1 tablet 11-17 22:00: 22 Yes 1{tbl} 1 tablet, Oral, Q6HPRN, Starting on Wed11/17/23 at 1600, Until Discontinu ed, Routine, Pain (scale 7-10) [facility] HYDROcodone -acetaminop hen (NORCO 5) 5-325 mg tablet 1 tablet 11-17 22:00: 10 Yes 1{tbl} 1 tablet, Oral, Q6HPRN, Starting on Wed11/17/23 at 1600, Until Discontinu ed, Routine, Pain (scale 4-6) [facility] predniSONE (DELTASONE) tablet 40 mg 11-17 20:45: 00 11-22 14:59 :00 No 40mg 40 mg, Oral, DAILY, 5 doses, First dose on Wed11/17/23 at 1445, Last dose on Wed11/21/23 at 0900, Routine [facility] cyclobenzap rine (FLEXERIL) tablet 10 mg 11-17 20:01: 51 Yes 10mg 10 mg, Oral, TIDPRN, Starting on Wed11/17/23 at 1401, Until Discontinu ed, Routine, Muscle Spasms [facility] HYDROcodone -acetaminop hen (NORCO 5) 5-325 mg tablet 1 tablet 11-17 17:51: 18 11-17 22:00 :33 No 1{tbl} 1 tablet, Oral, Q6HPRN, Starting on Wed11/17/23 at 1151, Until Wed11/17/23 at 1600, Routine, Pain (scale 7-10) [facility] KCL (KLOR-CON M20) tablet 40 mEq 11-17 16:00: 00 11-17 15:40 :00 No 40meq 40 mEq, Oral, ONCE, 1 dose, On Wed11/17/23 at 1000, Routine [facility] hydroxychlo roquine (PLAQUENIL) tablet 200 mg 11-17 15:30: 00 Yes 200mg 200 mg, Oral, DAILY, First dose (after last modificati on) on Wed11/17/23 at 0930, Until Discontinu ed [facility] leflunomide (ARAVA) tablet 20 mg 11-17 15:30: 00 Yes 20mg 20 mg, Oral, DAILY, First dose (after last modificati on) on Wed11/17/23 at 0930, Until Discontinu ed, Routine [facility] azithromyci n (ZITHROMAX) tablet 500 mg 11-16 19:00: 00 11-17 18:15 :00 No 500mg 500 mg, Oral, Q24H ABX, 2 doses, First dose (after last reorder) on Wed11/16/23 at 1300, Last dose on Wed11/17/23 at 1300, Routine
Reason for Anti-Infec tive: Empiric Therapy for Suspected Infection< br>Empiric Therapy Site: Respirator y
Durat ion of therapy: 72 hours [facility] ipratropium -albuteroL (DUONEB) 0.5 mg-3 mg(2.5 mg base)/3 mL nebulizer solution 3 mL 11-16 18:00: 00 Yes 3mL 3 mL, Inhalation , QID, First dose on Wed11/16/23 at 1200, Until Discontinu ed, Routine [facility] cefTRIAXone (ROCEPHIN) 1,000 mg in NaCl 0.9% (NS) 100 mL MINI-BAG 11-16 18:00: 00 11-18 01:36 :27 No 1000mg 1,000 mg, IV Piggyback, Q24H ABX, 7 doses, First dose on Wed11/16/23 at 1200, Last dose on Wed11/22/23 at 1200, Administer over 30 Minutes, 100 mL
Reas on for Anti-Infec tive: Empiric Therapy for Suspected Infection< br>Empiric Therapy Site: Respirator y
Durat ion of therapy: 5 days [facility] codeine-gua ifenesin (ROBITUSSIN AC) 10-100 mg/5 mL oral solution 10 mL 11-16 03:26: 34 Yes 10mL 10 mL, Oral, Q6HPRN, Starting on Wed11/15/23 at 2126, Until Discontinu ed, Routine, Cough [facility] enoxaparin (LOVENOX) injection 40 mg 11-15 23:00: 00 Yes 40mg 40 mg, Subcutaneo us, DAILY, First dose on Wed11/15/23 at 1700, Until Discontinu ed, Routine [facility] ipratropium -albuteroL (DUONEB) 0.5 mg-3 mg(2.5 mg base)/3 mL nebulizer solution 3 mL 11-15 21:15: 00 11-15 20:28 :00 No 3mL 3 mL, Inhalation , ONCE NOW, 1 dose, On Wed11/15/23 at 1515, Routine [facility] potassium chloride in water 10 mEq/100 mL RTU 10 mEq 11-15 21:00: 00 11-16 01:17 :00 No 10meq 10 mEq, IV Piggyback, Q1H, 4 doses, First dose on Wed11/15/23 at 1500, Last dose on Wed11/15/23 at 1800, Administer over 60 Minutes, 100 mL [facility] ipratropium -albuteroL (DUONEB) 0.5 mg-3 mg(2.5 mg base)/3 mL nebulizer solution 3 mL 11-15 20:53: 16 Yes 3mL 3 mL, Inhalation , QIDPRN, Starting on Wed11/15/23 at 1453, Until Discontinu ed, Routine, Wheezing [facility] ondansetron (ZOFRAN (PF)) injection 4 mg 11-15 20:53: 00 Yes 4mg 4 mg, Slow IV Push, Q6HPRN, Starting on Wed11/15/23 at 1453, Until Discontinu ed, Routine, Nausea and Vomiting (N/V) [facility] traMADoL (ULTRAM) tablet 50 mg 11-15 20:52: 56 11-17 20:51 :56 No 50mg 50 mg, Oral, Q8HPRN, Starting on Wed11/15/23 at 1452, Until Wed11/17/23 at 1451, Routine, Pain (scale 4-6) [facility] acetaminoph en (TYLENOL) tablet 650 mg 11-15 20:52: 54 Yes 650mg 650 mg, Oral, Q6HPRN, Starting on Wed11/15/23 at 1452, Until Discontinu ed, Routine, Pain (scale 1-3) [facility] oseltamivir (TAMIFLU) capsule 75 mg 11-15 20:45: 00 11-20 13:59 :00 No 75mg 75 mg, Oral, BID, 10 doses, First dose on Wed11/15/23 at 1445, Last dose on Wed11/19/23 at 2000, Routine [facility] KCL (KLOR-CON M20) tablet 40 mEq 11-15 20:30: 00 11-15 21:13 :00 No 40meq 40 mEq, Oral, ONCE, 1 dose, On Wed11/15/23 at 1430, GILMA [facility] azithromyci n (ZITHROMAX) tablet 500 mg 11-15 18:45: 00 11-15 19:16 :00 No 500mg 500 mg, Oral, ONCE, 1 dose, On Wed11/15/23 at 1245, GILMA
Re ason for Anti-Infec tive: Empiric Therapy for Suspected Infection< br>Empiric Therapy Site: Respirator y
Durat ion of therapy: Once (ED) [facility] cefTRIAXone (ROCEPHIN) 1,000 mg in NaCl 0.9% (NS) 100 mL MINI-BAG 11-15 18:45: 00 11-15 19:31 :00 No 1000mg 1,000 mg, IV Piggyback, ONCE, 1 dose, On Wed11/15/23 at 1245, Administer over 30 Minutes, 100 mL
Reas on for Anti-Infec tive: Empiric Therapy for Suspected Infection< br>Empiric Therapy Site: Respirator y
Durat ion of therapy: Once (ED) [facility] Immunizations Ordered Immunization Name Filled Immunization Name Date Status Comments Source SARS-COV-2 COVID-19 PFIZER VACCINE Unknown Completed [facility] SARS-COV-2 COVID-19 PFIZER VACCINE Unknown Completed [facility] Vital Signs Vital Name Observation Time Observation Value Comments S ource Respiratory rate 2023-11-18 21:01:00 18 /min [facility] Oxygen saturation in Arterial blood by Pulse oximetry 2023-11-18 21:01:00 99 /min [facility] Systolic blood pressure 2023-11-18 17:19:00 121 mm[Hg] [facility] Diastolic blood pressure 2023-11-18 17:19:00 60 mm[Hg] [facility] Heart rate 2023-11-18 17:19:00 88 /min [facility] Body temperature 2023-11-18 17:19:00 36.39 Debi [facility] Body weight 2023-11-18 09:00:00 86.456 kg [facility] BMI 2023-11-18 09:00:00 31.72 kg/m2 [facility] Body height 2023-11-15 22:40:00 165.1 cm [facility] Procedures Procedure Date / Time Performed Performing Clinician Source MAGNESIUM 2023-11-18 09:28:00 Isidro Holguin [facility] BASIC METABOLIC PANEL (NA, K, CL, CO2, GLUCOSE, BUN, CREATININE, CA) 2023-11-18 09:28:00 Pattie Meza [facility] BASIC METABOLIC PANEL (NA, K, CL, CO2, GLUCOSE, BUN, CREATININE, CA) 2023-11-17 09:57:00 Pattie Meza [facility] CBC WITH DIFF 2023-11-17 09:57:00 Derrick Pattie [facility] BASIC METABOLIC PANEL (NA, K, CL, CO2, GLUCOSE, BUN, CREATININE, CA) 2023 15:27:[address] [facility] CBC WITH DIFF 2023 15:27:00 Amol [facility] LEGIONELLA AND STREPTOCOCCUS PNEUMONIAE URINARY ANTIGENS 2023 00:46:00 Ras Salazar [facility] PROCALCITONIN 2023-11-15 23:15:00 Ras Salazar [facility] ASSIGNMENT OF BENEFITS 2023-11-15 19:13:18 Docto r Unassigned, [place] [facility] BLOOD CULTURE SCREEN 2023-11-15 18:46:00 David Donnelly [facility] TROPONIN I 2023-11-15 18:46:00 Denilson Donnelly [facility] COMP. METABOLIC PANEL ([id number]) 2023-11-15 18:46:00 Denilson Donnelly [facility] CBC WITH DIFF 2023-11-15 18:46:00 Denilson Donnelly [facility] N-TERMINAL PRO-BNP 2023-11-15 18:46:00 Denilson Donnelly [facility] LACTIC ACID WHOLE BLOOD 2023-11-15 18:44:00 Kaley Donnelly [facility] XR CHEST 1 VW 2023-11-15 18:32:14 Denilson Donnelly [facility] RAPID INFLUENZA A/B 2023-11-15 18:21:00 Vilma Donnelly [facility] COVID-19 (ID NOW RAPID TESTING) 2023-11-15 18:21:00 Denilson Donnelly [facility] LAB ONLY COVID INTERPRETATION 2023-11-15 18:21:00 Denilson Donnelly [facility] NOTICE OF PRIVACY PRACTICES 2023-11-15 17:58:16 Doctor Unassigned, [place] [facility] CONSENT/REFUSAL FOR DIAGNOSIS AND TREATMENT 2023-11-15 17:57:40 Doctor Unassigned, [place] [facility] Encounters Start Date/Time End Date/Time Encounter Type Admission Type Attending [facility] Care Facility Care Department Encounter ID Source 2023-11-19 00:00:00 2023-11-19 00:00:00 Transition of Care Nelson Jaimes [id number] [facility] 2023-11-15 12:13:00 2023-11-18 15:23:00 Hospital Encounter Denilson Donnelly [facility] [id number] [facility] 2023-11-15 12:13:00 2023-11-18 15:23:00 Inpatient Khoa RAS SALAZAR [facility] [id number] [facility] 2023-08-07 00:00:00 2023-08-07 00:00:00 Outpatient GC_GCBZW_Ka diyala_S [facility] [id number] [facility] 2019-09-15 14:15:00 2019-09-16 05:59:59 Outpatient nullFlavo r [facility] [id number] Yessy Castañeda Results Test Description Test Time Test Comments Results Result Co mments Source [facility] with [id number] 16:06:42* Test Item Value Reference Range Interpretation Comme nts WBC (test code = 6690-2) 4.37 4.30-11.10 RBC (test code = 789-8) 4.89 3.93-5.25 HGB (test code = 718-7) 13.9 g/dL 11.6-15.0 HCT (test code = 4544-3) 44.7 % 35.7-45.2 MCV (test code = 787-2) 91.4 fL 80.6-95.5 MCH (test code = 785-6) 28.4 pg 25.9-32.8 MCHC (test code = 786-4) 31.1 g/dL 31.6-35.1 L RDW-SD (test code = 20859-1) 43.9 fL 39.0-49.9 RDW-CV (test code = 788-0) 13.1 % 12.0-15.5 PLT (test code = 777-3) 141 166-358 L MPV (test code = 93778-2) 10.6 fL 9.5-12.9 NRBC/100 WBC (test code = 8953222372) 0.0 0.0-10.0 NRBC x10^3 (test code = 0718881034) See_Comment [Automated messa ge] The system which generated this result transmitted reference range: 10*3/?L. The reference range was not used to interpret this result as normal/abnormal. GRAN MAT (NEUT) % (test code = 770-8) 62.9 % IMM GRAN % (test code = 3265427226) 0.50 % LYMPH % (test code = 736-9) 22.2 % MONO % (test code = 5905-5) 10.5 % EOS % (test code = 713-8) 3.0 % BASO % (test code = 706-2) 0.9 % GRAN MAT x10^3(ANC) (test code = 7279684880) 2.75 10*3/uL 1.88-7.09 IMM GRAN x10^3 (test code = 5946314688) 0.00-0.06 LYMPH x10^3 (test code = 731-0) 0.97 10*3/uL 1.32-3.29 L MONO x10^3 (test code = 742-7) 0.46 10*3/uL 0.33-0.92 EOS x10^3 (test code = 711-2) 0.13 10*3/uL 0.03-0.39 BASO x10^3 (test code = 704-7) 0.04 10*3/uL 0.01-0.07 Lab Interpretation (test code = 83634-8) Abnormal [facility] WITH [id number] 20:22:54* Test Item Value Reference Range Interpretation Comme nts WBC (test code = 6690-2) 3.91 4.30-11.10 L RBC (test code = 789-8) 5.25 3.93-5.25 HGB (test code = 718-7) 14.9 g/dL 11.6-15.0 HCT (test code = 4544-3) 46.4 % 35.7-45.2 H MCV (test code = 787-2) 88.4 fL 80.6-95.5 MCH (test code = 785-6) 28.4 pg 25.9-32.8 MCHC (test code = 786-4) 32.1 g/dL 31.6-35.1 RDW-SD (test code = 17918-1) 42.1 fL 39.0-49.9 RDW-CV (test code = 788-0) 13.0 % 12.0-15.5 PLT (test code = 777-3) 162 166-358 L MPV (test code = 83749-2) 10.6 fL 9.5-12.9 NRBC/100 WBC (test code = 5090069861) 0.0 0.0-10.0 NRBC x10^3 (test code = 0988780155) See_Comment [Automated messa ge] The system which generated this result transmitted reference range: 10*3/?L. The reference range was not used to interpret this result as normal/abnormal. GRAN MAT (NEUT) % (test code = 770-8) 43.4 % IMM GRAN % (test code = 3356102480) 0.30 % LYMPH % (test code = 736-9) 36.3 % MONO % (test code = 5905-5) 17.9 % EOS % (test code = 713-8) 0.8 % BASO % (test code = 706-2) 1.3 % GRAN MAT x10^3(ANC) (test code = 3028992594) 1.70 10*3/uL 1.88-7.09 L IMM GRAN x10^3 (test code = 5979489045) 0.00-0.06 LYMPH x10^3 (test code = 731-0) 1.42 10*3/uL 1.32-3.29 MONO x10^3 (test code = 742-7) 0.70 10*3/uL 0.33-0.92 EOS x10^3 (test code = 711-2) 0.03 10*3/uL 0.03-0.39 BASO x10^3 (test code = 704-7) 0.05 10*3/uL 0.01-0.07 GIANT PLATELETS (test code = 5908-9) Present See_Comment A [Automated [employer] ge] The system which generated this result transmitted reference range: (none). The reference range was not used to interpret this result as normal/abnormal. Lab Interpretation (test code = 89176-3) Abnormal [facility] [id number] 20:21:52* Test Item Value Reference Range Interpretation Comme nts TROPONIN I (test code = 9776046467) 0.008 ng/mL <=0.034 PARKER (test code = PARKER) Reference (Normal) Range (defined by the 99th percentile reference limit): <= 0.034 ng/mL Note: Cardiac troponin begins to rise 3-4 hours after the onset of ischemia. Repeat in 4-6 hours if the sample was drawn within 3-4 hours of the onset of the symptom and found normal. Diagnosis of myocardial injury is made with acute changes in cTn concentrations with at least one serial sample above the 99th percentile upper reference limit (URL), taken together with the patient's clinical presentation. Biotin has been reported to cause a negative bias, interpret results relative to patient's use of biotin. Lab Interpretation (test code = 11402-3) Normal [facility] [id number] 20:19:32* Test Item Value Reference Range Interpretation Comme nts NT-proBNP (test code = 51671-7) 479 pg/mL <=125 PARKER (test code = PARKER) Result Indeterminate-Consid er causes of NT-proBNP elevation other than Heart failure such as acute coronary syndrome, pulmonary embolism, pulmonary hypertension, sepsis, stroke, and renal dysfunction. Lab Interpretation (test code = 42952-2) Abnormal [facility]. METABOLIC PANEL ([id number])2023-11-15 20:15:51* Test Item Value Reference Range Interpretation Comme nts NA (test code = 4783420660) 137 mmol/L 135-145 K (test code = 3210475461) 2.9 mmol/L 3.5-5.0 LL CL (test code = 3140131369) 94 mmol/L 98-108 L CO2 TOTAL (test code = 8258558650) 37 mmol/L 23-31 H AGAP (test code = 4836099411) 6 2-16 BUN (test code = 2127392775) 23 mg/dL 7-23 GLUCOSE (test code = 1751406619) 64 mg/dL 70-110 L CREATININE (test code = 3904742258) 0.71 mg/dL 0.50-1.04 TOTAL BILI (test code = 1179787162) 0.6 mg/dL 0.1-1.1 CALCIUM (test code = 3450328115) 8.7 mg/dL 8.6-10.6 T PROTEIN (test code = 1841464885) 7.3 g/dL 6.3-8.2 ALBUMIN (test code = 3412047434) 4.0 g/dL 3.5-5.0 ALK PHOS (test code = 9288579331) 77 U/L 34-122 ALTv (test code = 1742-6) 25 U/L 5-35 AST(SGOT) (test code = 6304538712) 45 U/L 13-40 H eGFR (test code = 33862-7) 88.8 mL/min/1.73m2 CKD-EPI eGFR (2020). Assuming creatinine has been stable day-to-day for at least three months, the eGFR indicates Category G2 (60 - 89 mL/min/1.73 m2) Lab Interpretation (test code = 85527-3) Abnormal [facility] Whole [id number] 18:48:38* Test Item Value Reference Range Interpretation Comme nts LACTIC ACID (test code = 1817997196) 1.34 mmol/L 0.50-2.20 Lab Interpretation (test cod e = 91765-2) Normal [facility] 1 [id number] 18:46:50EXAM: XR CHEST 1 VW COMPARISON: None [facility] and Physical Notes Date/Time Note Provider Source 2023-11-15 20:54:48 [facility] H&P Date of Service: 11/15/2023 CHIEF COMPLAINT: shortness of breath Subjective History of Present Illness 77 yo female with pmh of DM, HTN, COPD who presents to the ED secondary to shortness of breath for the past week. Additional symptoms: productive cough (yellow), congestion, malaise, weak. She went to her pcp office and was noted to have low oxygen. She was sent here. had flu PAST MEDICAL HISTORY Diabetes HTN COPD Past Surgical History Gallbladder, hysterectomy, appendectomy Past Family History Noncontributory ALLERGIES No Known Allergies MEDICATIONS No current facility-administered medications on file prior to encounter. No current outpatient medications on file prior to encounter. SOCIAL HISTORY Social History Socioeconomic History Marital status: Number of children: 7 Highest education level: GED or equivalent Tobacco Use Smoking status: Never Passive exposure: Never Smokeless tobacco: Never REVIEW OF SYSTEMS Review of Systems Constitutional: Positive for appetite change (decreased) and fatigue. Negative for activity change, chills, diaphoresis, fever and unexpected weight change. HENT: Positive for congestion. Negative for dental problem, drooling, ear discharge, ear pain, facial swelling, hearing loss, mouth sores, nosebleeds, postnasal drip, rhinorrhea, sinus pressure, sneezing, sore throat, tinnitus, trouble swallowing and voice change. Eyes: Negative. Respiratory: Positive for cough, shortness of breath and wheezing. Negative for apnea, choking, chest tightness and stridor. Breasts: Negative. Cardiovascular: Negative. Gastrointestinal: Positive for diarrhea (watery). Negative for abdominal distention, abdominal pain, anal bleeding, blood in stool, constipation, nausea, rectal pain and vomiting. Genitourinary: Negative. Musculoskeletal: Positive for arthralgias and back pain. Negative for gait problem, joint swelling, myalgias, neck pain and neck stiffness. Skin: Negative. Neurological: Positive for weakness and light-headedness. Negative for dizziness, tremors, seizures, syncope, facial asymmetry, speech difficulty, numbness and headaches. Psychiatric/Behavioral: Negative. Endocrine: Endocrine negative Objective PHYSICAL EXAMINATION Vitals: 11/15/23200011/16/23 0049 11/16/23 0226 11/16/23 0407 BP: 117/53 116/59 113/53 Pulse: 82 85 84 Resp: 18 22 18 20 Temp: 36.8 ?C (98.2 ?F) 36.9 ?C (98.5 ?F) 36.8 ?C (98.2 ?F) TempSrc: Temporal Artery SpO2: 97% 98% 94% 98% Weight: 86 kg (189 lb 8 oz) Height: Physical Exam Vitals and nursing note reviewed. Constitutional: General: She is not in acute distress. Appearance: Normal appearance. She is not ill-appearing, toxic-appearing or diaphoretic. HENT: Head: Normocephalic and atraumatic. Right Ear: External ear normal. Left Ear: External ear normal. Nose: Nose normal. No congestion. Mouth/Throat: Mouth: Mucous membranes are moist. Pharynx: No oropharyngeal exudate or posterior oropharyngeal erythema. Eyes: General: No scleral icterus. Extraocular Movements: Extraocular movements intact. Conjunctiva/sclera: Conjunctivae normal. Pupils: Pupils are equal, round, and reactive to light. Cardiovascular: Rate and Rhythm: Normal rate and regular rhythm. Heart sounds: No murmur heard. No friction rub. No gallop. Pulmonary: Effort: Pulmonary effort is normal. No respiratory distress. Breath sounds: Normal breath sounds. No wheezing or rales. Abdominal: General: Abdomen is flat. Bowel sounds are normal. There is no distension. Palpations: Abdomen is soft. Tenderness: There is no abdominal tenderness. There is no guarding. Musculoskeletal: General: Normal range of motion. Cervical back: Normal range of motion and neck supple. Right lower leg: No edema. Left lower leg: No edema. Skin: General: Skin is warm and dry. Neurological: Mental Status: She is alert. Psychiatric: Mood and Affect: Mood normal. Behavior: Behavior normal. Thought Content: Thought content normal. Judgment: Judgment normal. LABS/IMAGING - reviewed EXAM: XR CHEST 1 VW COMPARISON: None HISTORY: cough IMPRESSION The lungs are mildly emphysematous. Prominent bilateral interstitial markings may be seen with chronic airway disease. No focal opacity. No pleural abnormality. The cardiomediastinal silhouette is unremarkable. Aortic arch calcifications. No osseous abnormality. Assessment & Plan Yesi Henry is a 78 year old female with PMH as listed above, admitted to the hospital with: Acute respiratory failure: -- Will treat underlying condition -- Oxygen supplementation as needed 2. Influenza: -- Will continue with Tamiflu -- Will continue antibiotics for possible superimposed pneumonia 3. COPD -- Will ordered scheduled duoneb as well as duoneb prn 4. Hypokalemia: will replace potassium supplements -- Will repeat labs to monitor potassium 5. HTN: normotensive Prophylaxis: DVT- enoxaparin Code Status: Full Code Estimated LOS: This inpatient admission will likely require greater than or equal to 2 Midnights. Management is not feasible as an outpatient and there is concern for adverse outcomes if not managed in an inpatient setting. Advance care planning discussed for 18 mins with patient at bedside. Surrogate decision maker: Uriel Henry (spouse) - [facility] EMERGENC[facility]YSICIAN STAFF [facility] Notes Date/Time Note Provider Source 2023-11-19 10:36:05 TRANSITIONAL CARE MANAGEMENT ASSESSMENT 11/19/2023 Yesi Henry [id number] Yesi Henry is a 78 year old /White female was admitted on 11/15/[address] [facility], [facility] SURG. She was discharged on 11/18/23 with discharge disposition of HR- Routine Discharge. Admitting Physician: Ras Salazar Discharge Diagnosis: Acute respiratory failure: -- Will treat underlying condition -- Oxygen supplementation as needed -- Patient down to 3 L nasal cannula with oxygen saturations at 98% --Will wean oxygen as possible --Patient home O2 evaluation findings patient will require home O2. Oxygen saturations drop below 88% at room air. --Start prednisone 40 mg daily 1/5 days 2. Chronic lower back pain secondary to rheumatoid arthritis -- Patient takes hydroxychloroquine 200 mg daily --Started cyclobenzaprine 10 mg 3 times daily as needed 2. Influenza: -- Will continue with Tamiflu day 4/5 -- Will continue antibiotics for possible superimposed pneumonia --Patient completed dose of Zithromax 3. COPD -- Continue DuoNebs scheduled -- Zithromax 500 mg daily 4. Hypokalemia: 4.0 resolved -- will replace potassium supplements -- Will repeat labs to monitor potassium 5. HTN: normotensive Linked Episodes Type: Episode: Status: Noted: Resolved: Last update: Updated by: TRANSITION OF CARE TCM Active 11/18/2023 11/19/2023 10:32 AM Nelson Jaimes RN Comments: TCM [id number] outreach documentation: Discharge Assessment Chart Assessed: 11/19/23 TCM Outreach Completed: 11/19/23 Do you have a few minutes to speak with me about how you are doing at home?: Yes (Pt reports she is doing good.) Discharge Instructions Do you understand your at-home instructions?: Yes (No questions at this time.) Medications Have you filled your prescriptions and do you have them in your home? : Yes Do you know how to take your medications?: Yes (No questions.) Can you provide me with the names or descriptions of any [id number] or supplements you are currently taking?: Yes (Vitamin D3, vitamin C) Supplies Did you receive applicable home medical supplies/equipment?: Yes (O2) Do you understand how to use the medical supplies/equipment?: Yes Follow Up Appointment Has a follow up appointment been scheduled?: No May I assist with scheduling this appointment?: Patient has outside PCP (PCP is not in on Wednesday. Pt will schedule appt.) Do you have any questions about your follow up appointments?: No Are you able to get to your appointment? Who will be taking you?: Yes (Pt states she has transportation.) Home Health Assistance Has the home health nurse contacted you since you've been home?: N/A Survey - Recognition Is there anything you would like to share about your recent hospitalization, or anyone you would like to recognize?: No Do you have any suggestions for improvement?: No Do you have any other questions or concerns at this time?: No Future Appointments: Pending. ER Jaimes RN [facility] 2023-11-18 14:46:37 Problem: Infection Risk Goal: Absence of infection Outcome: Adequate for discharge Problem: Skin integrity Impaired (Risk or Actual) Goal: Prevention of new skin breakdown Outcome: Adequate for discharge Problem: Falls, Risk of Goal: Absence of falls Outcome: Adequate for discharge Problem: Pain Goal: Control of pain at or below patient's documented comfort goal Outcome: Adequate for discharge Problem: Discharge Planning Goal: Adequate for discharge Outcome: Adequate for discharge Problem: Venous Thromboembolism, (actual or risk of) Goal: Absence of venous thromboembolism (Risk) Outcome: Adequate for discharge Problem: Respiratory Function - Impaired Goal: Able to cough effectively Outcome: Adequate for discharge Goal: Adequate oxygenation Outcome: Adequate for discharge Goal: Adequate work of breathing Outcome: Adequate for discharge Goal: Patent airway Outcome: Adequate for discharge [employer] Adia Dobbs RN [facility] 2023-11-18 00:09:13 Problem: Infection Risk Goal: Absence of infection Outcome: Progressing as expected Problem: Skin integrity Impaired (Risk or Actual) Goal: Prevention of new skin breakdown Outcome: Progressing as expected Problem: Falls, Risk of Goal: Absence of falls Outcome: Progressing as expected Problem: Pain Goal: Control of pain at or below patient's documented comfort goal Outcome: Progressing as expected Problem: Discharge Planning Goal: Adequate for discharge Outcome: Progressing as expected Problem: Venous Thromboembolism, (actual or risk of) Goal: Absence of venous thromboembolism (Risk) Outcome: Progressing as expected Problem: Respiratory Function - Impaired Goal: Able to cough effectively Outcome: Progressing as expected Goal: Adequate oxygenation Outcome: Progressing as expected Goal: Adequate work of breathing Outcome: Progressing as expected Goal: Patent airway Outcome: Progressing as expected [employer] Garrett Correa RN [facility] 2023-11-17 17:25:35 Problem: Infection Risk Goal: Absence of infection Outcome: Progressing as expected Problem: Skin integrity Impaired (Risk or Actual) Goal: Prevention of new skin breakdown Outcome: Progressing as expected Problem: Falls, Risk of Goal: Absence of falls Outcome: Progressing as expected Problem: Pain Goal: Control of pain at or below patient's documented comfort goal Outcome: Progressing as expected Problem: Discharge Planning Goal: Adequate for discharge Outcome: Progressing as expected Problem: Venous Thromboembolism, (actual or risk of) Goal: Absence of venous thromboembolism (Risk) Outcome: Progressing as expected Problem: Respiratory Function - Impaired Goal: Able to cough effectively Outcome: Progressing as expected Goal: Adequate oxygenation Outcome: Progressing as expected Goal: Adequate work of breathing Outcome: Progressing as expected Goal: Patent airway Outcome: Progressing as expected [facility] Rere García RN [facility] 2023 23:09:34 Problem: Infection Risk Goal: Absence of infection Outcome: Progressing as expected Problem: Skin integrity Impaired (Risk or Actual) Goal: Prevention of new skin breakdown Outcome: Progressing as expected Problem: Falls, Risk of Goal: Absence of falls Outcome: Progressing as expected Problem: Pain Goal: Control of pain at or below patient's documented comfort goal Outcome: Progressing as expected Problem: Discharge Planning Goal: Adequate for discharge Outcome: Progressing as expected Problem: Venous Thromboembolism, (actual or risk of) Goal: Absence of venous thromboembolism (Risk) Outcome: Progressing as expected Problem: Respiratory Function - Impaired Goal: Able to cough effectively Outcome: Progressing as expected Goal: Adequate oxygenation Outcome: Progressing as expected Goal: Adequate work of breathing Outcome: Progressing as expected Goal: Patent airway Outcome: Progressing as expected [facility] 2023 11:37:10 Summary: IV to PO Conversion Pharmacist IV to PO Medication Conversion Note Per chart review, patient Yesi Henry meets criteria for IV to PO medication conversion. Please note that the following medication(s) have been converted from IV to PO per P&T approved pharmacist IV to PO medication conversion policy: Azithromycin 500 mg IVPB Q24H to Azithromycin 500 mg PO Q24H Please call with questions or concerns. Skylar Al PharmD [facility] Pager: [phone] 2023 11:36 [employer] TEACH[employer]IST Skylar Al [facility] 2023 10:34:20 Problem: Infection Risk Goal: Absence of infection Outcome: Progressing as expected Problem: Skin integrity Impaired (Risk or Actual) Goal: Prevention of new skin breakdown Outcome: Progressing as expected Problem: Falls, Risk of Goal: Absence of falls Outcome: Progressing as expected Problem: Pain Goal: Control of pain at or below patient's documented comfort goal Outcome: Progressing as expected Problem: Discharge Planning Goal: Adequate for discharge Outcome: Progressing as expected Problem: Venous Thromboembolism, (actual or risk of) Goal: Absence of venous thromboembolism (Risk) Outcome: Progressing as expected Problem: Respiratory Function - Impaired Goal: Able to cough effectively Outcome: Progressing as expected Goal: Adequate oxygenation Outcome: Progressing as expected Goal: Adequate work of breathing Outcome: Progressing as expected Goal: Patent airway Outcome: Progressing as expected [employer] Jeromy Negrete RN [facility] 2023 04:52:04 Problem: Infection Risk Goal: Absence of infection Outcome: Progressing as expected Problem: Skin integrity Impaired (Risk or Actual) Goal: Prevention of new skin breakdown Outcome: Progressing as expected Problem: Falls, Risk of Goal: Absence of falls Outcome: Progressing as expected Problem: Pain Goal: Control of pain at or below patient's documented comfort goal Outcome: Progressing as expected Problem: Discharge Planning Goal: Adequate for discharge Outcome: Progressing as expected Problem: Venous Thromboembolism, (actual or risk of) Goal: Absence of venous thromboembolism (Risk) Outcome: Progressing as expected Problem: Respiratory Function - Impaired Goal: Able to cough effectively Outcome: Progressing as expected Goal: Adequate oxygenation Outcome: Progressing as expected Goal: Adequate work of breathing Outcome: Progressing as expected Goal: Patent airway Outcome: Progressing as expected [employer] Vanessa Sy RN [facility] 2023-11-15 18:01:07 Problem: Infection Risk Goal: Absence of infection Outcome: Progressing as expected Problem: Skin integrity Impaired (Risk or Actual) Goal: Prevention of new skin breakdown Outcome: Progressing as expected Problem: Falls, Risk of Goal: Absence of falls Outcome: Progressing as expected Problem: Pain Goal: Control of pain at or below patient's documented comfort goal Outcome: Progressing as expected Problem: Discharge Planning Goal: Adequate for discharge Outcome: Progressing as expected Problem: Venous Thromboembolism, (actual or risk of) Goal: Absence of venous thromboembolism (Risk) Outcome: Progressing as expected [facility] 2023-11-15 15:59:06 Nurse Report Report given to MARIANO Leo over the phone, no questions received. Chief complaint, assessment findings and medications were discussed. Plan of care discussed with patient/--, patient aware of plan. Patient in stable condition at time report was given,no distress. Vital signs reassessed. Patient will be moved upstairs by tech shortly. Josselin Ojeda RN ER Ojeda RN [facility] 2023-11-15 15:53:55 Patient reassessed/rounding made. Patient denies complains at this time and verbalizes no needs. Remains in no acute distress, stable condition. Patient aware of plan of care. Josselin Ojeda RN [facility] 2023-11-15 14:00:00 Patient reassessed/rounding made. Patient denies complains at this time and verbalizes no needs. Remains in no acute distress, stable condition. Patient aware of plan of care. Josselin Ojeda RN [facility] 2023-11-15 13:59:29 Patient assisted via wheelchair to bathroom without incident. Reports dizziness when she stood up. [facility] 2023-11-15 12:20:00 Patient's name and verified with patient. Daughter at bedside with patient. Chief Complaint Patient presents with PNEUMONIA Other Hypoxia Patient moved to room due to hypoxia in triage. Patient is conscious and alert, with tachypnea, and normal color/tone for ethnicity -oriented to name, time, place, and situation. GCS 15. Patient reports she has been experiencing shortness of breath ~1 week - was seen at PCP and sent to ER for further eval/possible pneumonia work up. Patient denies nausea, vomiting, chest pain, fever, chills. Mentions she has had diarrhea the last couple of days - bowel movements with normal color. History reviewed. No pertinent past medical history. No known allergies. Vitals obtained. Assessment performed. IV in place and patent. Placed on continuous spo2/cardiac monitoring, HR 98, sinus rhythm on monitor. Placed on 2 lpm nasal cannula to maintain spo2 above 90% room air. Bed low and locked, secured with two rails, call light within reach. Belongings at bedside. Patient aware of plan of care. Josselin Ojeda RN [facility] 2023-11-15 12:17:27 O2 Saturation at REST on Room Air = 82% O2 Saturation at REST on 8 LPM of Oxygen = 90% If room air Saturations on Room Air are 88% or below STOP as no further testing is needed [facility] 2023-11-15 12:09:51 Pt has felt short of breath x1 week. Does not wear home oxygen. Went to PCP for symptoms. PCP listened to her and told her she had pneumonia. While in his office she states, "my oxygen was at the 40's, then I took my mask off and it went up to the 70's. My 's in the hospital so I haven't taken my BP meds in four days." Asked pt if she had COPD and baseline spo2, she replied "yes I do, I haven't checked my oxygen in awhile but used to if it wasn't below 85 I didn't worry about it." hospitalized with flu. [facility] 2023-11-15 11:54:00 [facility] Emergency Department Note Patient Name: Yesi Henry Date of : 1945 77 year old female Treatment Room: [facility] Primary Care Physician: John Kang Patient Escorted by: Self [9] Mode of Arrival: Personal means [1] EMS Treatment Prior to ED Arrival: RUBBER PROCESS HAND treatment: None Travel and Exposure Screening: Symptoms Does patient have any of these symptoms?: (not recorded) Exposure Screening Has patient had contact with someone with a communicable disease in the last month?: (not recorded) Diseases exposed to:: (not recorded) Is Patient ?: (not recorded) Exposure Date: (not recorded) Chief Complaint: Chief Complaint Patient presents with PNEUMONIA Other Hypoxia History of Present Illness: 77 yo F sent to the ED from her PCP's office with concerns of hypoxia and PNA. Pt admits to cough, congestion and feeling ill. Past Medical History/Immunizations: History reviewed. No pertinent past medical history. Tetanus received in last 5 years: No Childhood immunizations: Up-to-date Allergies: No Known Allergies Past Social History: Substance & Sexual Activity No substance use or sexual activity history on file. Past Surgical History: History reviewed. No pertinent surgical history. Review of Systems: Review of Systems Constitutional: Negative. Negative for activity change, appetite change, chills and fever. HENT: Negative. Negative for ear discharge and hearing loss. Eyes: Negative. Negative for photophobia, pain and redness. Respiratory: Positive for cough. Negative for choking, chest tightness and shortness of breath. Breasts: Negative. Cardiovascular: Negative. Negative for chest pain. Gastrointestinal: Negative. Negative for abdominal pain. Genitourinary: Negative. Negative for difficulty urinating and dyspareunia. Musculoskeletal: Negative. Negative for neck pain. Neurological: Negative for dizziness, syncope, weakness, numbness and headaches. Psychiatric/Behavioral: Negative. Negative for confusion. All other systems reviewed and are negative. Physical Exam: ED Triage Vitals [11/15/23 1211] Weight 86.2 kg (190 lb) Actual or estimated Estimated by patient/family report Height 1.651 m (5' 5") BP 131/50 Pulse 93 Resp 22 Temp 37.2 ?C (99 ?F) Temp source Oral SpO2 (!) 82 % Measured on Room air Physical Exam Vitals and nursing note reviewed. Constitutional: Appearance: Normal appearance. HENT: Head: Normocephalic and atraumatic. Nose: Nose normal. Eyes: Extraocular Movements: Extraocular movements intact. Conjunctiva/sclera: Conjunctivae normal. Pupils: Pupils are equal, round, and reactive to light. Cardiovascular: Rate and Rhythm: Regular rhythm. Tachycardia present. Pulses: Normal pulses. Heart sounds: Normal heart sounds. Pulmonary: Effort: Respiratory distress present. Breath sounds: Rhonchi present. Abdominal: General: Abdomen is flat. Palpations: Abdomen is soft. Musculoskeletal: General: Normal range of motion. Cervical back: Normal range of motion. Skin: General: Skin is warm. Capillary Refill: Capillary refill takes less than 2 seconds. Neurological: General: No focal deficit present. Mental Status: She is alert and oriented to person, place, and time. Radiology: XR CHEST 1 VW Final Result EXAM: XR CHEST 1 VW COMPARISON: None HISTORY: cough IMPRESSION The lungs are mildly emphysematous. Prominent bilateral interstitial markings may be seen with chronic airway disease. No focal opacity. No pleural abnormality. The cardiomediastinal silhouette is unremarkable. Aortic arch calcifications. No osseous abnormality. Lab Results: Lab Results CBC WITH DIFF - Abnormal Result Value Ref Range WBC 3.91 (*) 4.30 - 11.10 10*3/?L RBC 5.25 3.93 - 5.25 10*6/?L HGB 14.9 11.6 - 15.0 g/dL HCT 46.4 (*) 35.7 - 45.2 % MCV 88.4 80.6 - 95.5 fL MCH 28.4 25.9 - 32.8 pg MCHC 32.1 31.6 - 35.1 g/dL RDW-SD 42.1 39.0 - 49.9 fL RDW-CV 13.0 12.0 - 15.5 % PLT 162 (*) 166 - 358 10*3/?L MPV 10.6 9.5 - 12.9 fL NRBC/100 WBC 0.0 0.0 - 10.0 /100 WBCs NRBC x10 3 <0.01 10*3/?L GRAN MAT (NEUT) % 43.4 % IMM GRAN % 0.30 % LYMPH % 36.3 % MONO % 17.9 % EOS % 0.8 % BASO % 1.3 % GRAN MAT x10 3 (ANC) 1.70 (*) 1.88 - 7.09 10*3/uL IMM GRAN x10 3 <0.03 0.00 - 0.06 10*3/uL LYMPH x10 3 1.42 1.32 - 3.29 10*3/uL MONO x10 3 0.70 0.33 - 0.92 10*3/uL EOS x10 3 0.03 0.03 - 0.39 10*3/uL BASO x10 3 0.05 0.01 - 0.07 10*3/uL GIANT PLATELETS Present (*) (none) COMP. METABOLIC PANEL (18102) - Abnormal NA 137 135 - 145 mmol/L K 2.9 (*) 3.5 - 5.0 mmol/L CL 94 (*) 98 - 108 mmol/L CO2 TOTAL 37 (*) 23 - 31 mmol/L AGAP 6 2 - 16 BUN 23 7 - 23 mg/dL GLUCOSE 64 (*) 70 - 110 mg/dL CREATININE 0.71 0.50 - 1.04 mg/dL TOTAL BILI 0.6 0.1 - 1.1 mg/dL CALCIUM 8.7 8.6 - 10.6 mg/dL T PROTEIN 7.3 6.3 - 8.2 g/dL ALBUMIN 4.0 3.5 - 5.0 g/dL ALK PHOS 77 34 - 122 U/L ALTv 25 5 - 35 U/L AST(SGOT) 45 (*) 13 - 40 U/L eGFR 88.8 mL/min/1.73m2 RAPID INFLUENZA A/B - Abnormal Rapid Influenza A Positive (*) Negative Rapid Influenza B Negative Negative N-TERMINAL PRO-BNP - Abnormal NT-proBNP 479 <=125 pg/mL COVID-19 (ID NOW RAPID TESTING) - Normal SARS-CoV-2 Rapid ID NOW Not Detected Not Detected TROPONIN I - Normal TROPONIN I 0.008 <=0.034 ng/mL LACTIC ACID WHOLE BLOOD - Normal LACTIC ACID 1.34 0.50 - 2.20 mmol/L BLOOD CULTURE SCREEN BLOOD CULTURE SCREEN EKG: If EKG completed, see Procedure Note. Orders and Treatments: Orders Placed This Encounter Procedures XR CHEST 1 VW CBC WITH DIFF COMP. METABOLIC PANEL (64629) COVID-19 (ID NOW TESTING) RAPID INFLUENZA A/B TROPONIN I N-TERMINAL PRO-BNP Blood Culture - Peripheral # 1 Blood Culture - Peripheral # 2 Lactic Acid Whole Blood Lab Only COVID Interpretation O2 Per Protocol Orders Placed This Encounter Medications cefTRIAXone (ROCEPHIN) 1,000 mg in NaCl 0.9% (NS) 100 mL MINI-BAG azithromycin (ZITHROMAX) tablet 500 mg DISCONTD: ipratropium-albuteroL (DUONEB) 0.5 mg-3 mg(2.5 mg base)/3 mL nebulizer solution 3 mL ipratropium-albuteroL (DUONEB) 0.5 mg-3 mg(2.5 mg base)/3 mL nebulizer solution 3 mL KCL (KLOR-CON M20) tablet 40 mEq First Provider Eval: ED Events Date/Time Event User Comments 11/15/23 1210 Medical Screening Begins TODD STEPANDIEGO -- 11/15/23 1210 First Provider Evaluation DENILSON DONNELLY -- ED COURSE Diagnosis/Impression as of 11/15/23 1428 Dyspnea, unspecified type Flu COPD exacerbation Hypokalemia Procedures: Procedures MDM: Medical Decision Making 77 yo F arrived to the ED with complaints of cough and shortness of breath. Pt states her is admitted for flu/pneumonia. Pt states she was at her PCP's office and sent to the ED given her low O2 saturation. Pt noted to be flu+, h/o COPD. Pt given duonebs, patient also covered for atypical PNA. Potassium replaced. Problems Addressed: COPD exacerbation: acute illness or injury with systemic symptoms Dyspnea, unspecified type: acute illness or injury with systemic symptoms Flu: acute illness or injury with systemic symptoms Hypokalemia: acute illness or injury with systemic symptoms Amount and/or Complexity of Data Reviewed Labs: ordered. Radiology: ordered. Risk Prescription drug management. Flowsheet Documentation: Scoring Tools: No data recorded Disposition/Condition: ED Disposition None Discharge Medications: Patient's Medications No medications on file Follow-up: Electronically signed by: Denilson Donnelly DO 11/15/23 1428 [facility]
--- NOTE | 2025-01-17 16:20 | EDPHYS ---
Physician Documentation [facility] Name: Sommer Henry Age: 79 yrs Sex: Female : 1945 Arrival Date: 01/17/2025 Time: 14:26 Bed 12 Private MD: ED Physician Ibis Chu HPI: 01/17 15:47 This 79 yrs old Female presents to ER via Ambulatory with complaints of Rash gb1 - hands and feet. 15:47 79-year-old female with an itchy rash on the top of her hands. She does wash her hands gb1 frequently with Maite soap but otherwise denies any other irritants. Patient states that it has been itchy on the palms tops of her hands eyebrow started her on her feet and now also the bridge of her nose and under her eyes under the top cheek area. She does have history of rheumatoid arthritis and is currently on prednisone 20 mg daily for the last few weeks.. Historical: - Allergies: 15:14 No Known Allergies; jl7 - PMHx: 15:14 COPD; diabetes mellitus; Hypertensive disorder; jl7 - PSHx: 15:14 Appendectomy; Cholecystectomy; Total abdominal hysterectomy; jl7 - Immunization history:: Adult Immunizations up to date. - Infectious Disease History:: Denies. - Social history:: Smoking status: Patient/guardian denies using tobacco. Exam: 15:47 Constitutional: This is a well developed, well nourished patient who is awake, alert, gb1 and in no acute distress. Head/Face: Normocephalic, atraumatic. Eyes: Pupils equal round and reactive to light, extra-ocular motions intact. Lids and lashes normal. Conjunctiva and sclera are non-icteric and not injected. Cornea within normal limits. Periorbital areas with no swelling, redness, or edema. ENT: Nares patent. No nasal discharge, no septal abnormalities noted. Tympanic membranes are normal and external auditory canals are clear. Oropharynx with no redness, swelling, or masses, exudates, or evidence of obstruction, uvula midline. Mucous membranes moist. Neck: Trachea midline, no thyromegaly or masses palpated, and no cervical lymphadenopathy. Supple, full range of motion without nuchal rigidity, or vertebral point tenderness. No Meningismus. Chest/axilla: Normal chest wall appearance and motion. Nontender with no deformity. No lesions are appreciated. Cardiovascular: Regular rate and rhythm with a normal S1 and S2. No gallops, murmurs, or rubs. Normal PMI, no JVD. No pulse deficits. Skin: Warm, dry with normal turgor. Erythematous areas of patches on the dorsal surface of bilateral hands. She also has a similar erythematous patchy rash in the T-zone on her face. Vital Signs: 15:02 BP 154 / 79; Pulse 98; Resp 19; Temp 97.8; Pulse Ox 95% on R/A; iw MDM: 15:02 Medical Screening Exam initiated gb1 15:47 Data reviewed: vital signs, nurses notes. gb1 16:23 ED course: 79-year-old female with a concern for atopic dermatitis on the dorsal hands. gb1 I virtually consulted with dermatology who recommended clobetasol topical ointment 0.05% applied twice daily, have also educated patient on mild soap and washing of hands I still recommend formal evaluation in person by dermatology.. Administered Medications: No medications were administered Disposition Summary: 01/17/25 16:19 Discharge Ordered Notes: Location: Home gb1 Condition: Stable gb1 Diagnosis - Atopic dermatitis, unspecified gb1 Followup: gb1 - With: Private Physician - When: - Reason: Further diagnostic work-up Discharge Instructions: - Discharge Summary Sheet gb1 - Atopic Dermatitis gb1 Forms: - Medication Reconciliation Form gb1 - Antibiotic Education gb1 - Prescription Opioid Use gb1 - Patient Portal Instructions gb1 - Leadership Thank You Letter gb1 Prescriptions: - clobetasol 0.05 % Topical ointment - apply 1 application TOPICAL route 2 times per day for 1 wk; 15 gram; Refills: gb1 0, Product Selection Permitted Signatures: Riaz Mascorro RN RN jl7 Bakari Tinsley RN RN ll1 Ibis Chu MD MD gb1
--- NOTE | 2025-01-17 16:20 | ER ---
Nurse's Notes [facility] Name: Sommer Henry Age: 79 yrs Sex: Female : 1945 Arrival Date: 01/17/2025 Time: 14:26 Bed 12 Private MD: Diagnosis: Atopic dermatitis, unspecified Presentation: 01/17 15:02 Chief complaint: Patient states: rash on hands and feet and her face , appeared last iw month, started on my face and eyes, was on steroids 3 weeks ago , my hands itch really bad, went back to [employer] and there was an issue with the insurance. Coronavirus screen: At this time, the client does not indicate any symptoms associated with coronavirus-19. Ebola Screen: No symptoms or risks identified at this time. Initial Sepsis Screen: Does the patient meet any 2 criteria? No. Patient's initial sepsis screen is negative. Does the patient have a suspected source of infection? No. Patient's initial sepsis screen is negative. Risk Assessment: Do you want to hurt yourself or someone else? Patient reports no desire to harm self or others. Onset of symptoms was December 28, 2024. 15:02 Method Of Arrival: Ambulatory iw 15:02 Acuity: FLETCHER 4 iw Historical: - Allergies: 15:14 No Known Allergies; jl7 - PMHx: 15:14 COPD; diabetes mellitus; Hypertensive disorder; jl7 - PSHx: 15:14 Appendectomy; Cholecystectomy; Total abdominal hysterectomy; jl7 - Immunization history:: Adult Immunizations up to date. - Infectious Disease History:: Denies. - Social history:: Smoking status: Patient/guardian denies using tobacco. Screenin:28 [facility] ED Fall Risk Assessment (Adult) History of falling in the last 3 months, ll1 including since admission No falls in past 3 months (0 pts) Confusion or Disorientation No (0 pts) Intoxicated or Sedated No (0 pts) Impaired Gait No (0 pts) Mobility Assist Device Used No (0 pt) Altered Elimination No (0 pt) Score/Fall Risk Level 0 - 2 = Low Risk Maintained a safe environment, Hourly rounding (assess needs \T\ fall precautionary measures) done. Abuse screen: Denies threats or abuse. Nutritional screening: No deficits noted. Tuberculosis screening: No symptoms or risk factors identified. Assessment: 15:24 General: Appears in no apparent distress. Behavior is calm, cooperative, appropriate ll1 for age. Pain: Denies pain. Derm: Reports rash to hands and feet. 16:28 Reassessment: No changes from previously documented assessment. Patient and/or family ll1 updated on plan of care and expected duration. Pain level reassessed. Patient is alert, oriented x 3, equal unlabored respirations, skin warm/dry/pink. Vital Signs: 15:02 BP 154 / 79; Pulse 98; Resp 19; Temp 97.8; Pulse Ox 95% on R/A; iw ED Course: 14:30 Patient arrived in ED. al6 14:34 bIis Chu MD is Attending Physician. gb1 15:03 Triage completed. iw 15:04 Arm band placed on. iw 15:14 Patient placed in an exam room, on a stretcher. jl7 15:23 Bakari Tinsley RN is Primary Nurse. ll1 16:28 Patient has correct armband on for positive identification. Provided Education on: ER ll1 procedures and process. 16:28 No provider procedures requiring assistance completed. Patient did not have IV access ll1 during this emergency room visit. Administered Medications: No medications were administered Medication: 16:31 VIS not applicable for this client. ll1 Outcome: 16:19 Discharge ordered by MD. gb1 16:28 Discharged to home ambulatory, ll1 16:28 Condition: stable 16:28 Discharge instructions given to patient, Instructed on discharge instructions, follow up and referral plans. Demonstrated understanding of instructions, follow-up care, medications, Prescriptions given X 1, 16:31 Patient left the ED. ll1 Signatures: Raven Peña RN RN Riaz Mascorro RN RN jl7 Bakari Tinsley RN RN ll1 Ibis Chu MD MD gb1 Xiao Colindres al6
[2025-01-17 16:58] VITALS: BP 154/79; TEMP 97.8; O2SAT 95
== END 2025-01-17 16:31 | disposition home or self-care (01) ==
LOC: ER 14:26
DX: L20.9 Atopic dermatitis, unspecified (principal)